=== PATIENT | male | born 1975 | race Caucasian/White ===

== ENCOUNTER → 2022-03-12 15:51 | Outpatient (BNVA) | payer OTHER, SELFPAY | PROVIDERS: PCP Internal Medicine Medical Oncology; Visit Provider Internal Medicine | DX: J45.909 Unspecified asthma, uncomplicated (principal); J44.9 Chronic obstructive pulmonary disease, unspecified; Z72.0 Tobacco use | CPT/HCPCS: 99202 ==

== ENCOUNTER 2022-04-08 14:03 | Outpatient (REF) | payer OTHER, SELFPAY ==
--- NOTE | 2022-04-08 15:00 | PFT_ITS ---
Forced vital capacity is slightly reduced. FEV1 markedly reduced. FEV1/FVC ratio is 51. FEF 25-75 27% and MVV 44%. Post-bronchodilator therapy, there is significant improvement in all parameters resulting in almost complete resolution of the obstructive component. Total lung capacity 101%. Residual volume 151% indicating air trapping. Diffusion capacity 78%. CONCLUSION: Severe obstructive airway disorder. Excellent response to bronchodilator therapy with almost complete resolution. These findings are consistent with bronchial asthma. Clinical correlation recommended. Altaf Flores MD [facility] / [phone]
== END 2022-04-08 14:04 | disposition home or self-care (01) ==
LOC: HO.RESP 14:03
PROVIDERS: PCP Internal Medicine Medical Oncology; Visit Provider Internal Medicine
DX: J44.9 Chronic obstructive pulmonary disease, unspecified (principal); J45.909 Unspecified asthma, uncomplicated; G47.33 Obstructive sleep apnea (adult) (pediatric); Z72.0 Tobacco use; Z79.899 Other long term (current) drug therapy
CPT/HCPCS: 94060; 94727; 94729; 99212

== ENCOUNTER 2023-06-06 18:44 | Emergency (ER) | payer OTHER, SELFPAY ==
--- NOTE | ~2023-06-06 | XR_ITS ---
EXAMINATION: XR SHOULDER, RIGHT CLINICAL INFORMATION: Right shoulder pain COMPARISON: 04/30/2016 TECHNIQUE: AP external rotation, Grashey, scapular Y, and axillary views of the right shoulder. FINDINGS: The acromioclavicular joint appears slightly widened and the distal clavicle is slightly subluxed dorsally although this may be projectional. The coracoclavicular distance does not appear widened. No fracture. The glenohumeral joint is unremarkable. XR/XR shoulder RT min 2V IMPRESSION: Possible mild acromioclavicular separation. Correlate for point tenderness in this location. Otherwise unremarkable.
--- NOTE | ~2023-06-06 | CT_ITS ---
EXAMINATION: CT HEAD WITHOUT CONTRAST CT CERVICAL SPINE WITHOUT CONTRAST CLINICAL INFORMATION: Reason for Exam fall COMPARISON: CT of the head done on 06/29/2011. TECHNIQUE: Imaging was performed from the skull base to vertex without intravenous administration of contrast. In addition, helical noncontrast CT imaging was acquired through the cervical spine and source images were reviewed along with axial reconstructions and sagittal and coronal MPRs. This CT examination was performed using dose optimization techniques as appropriate, variously including the following: *Automated exposure control. *Adjustment of mA and/or kV according to patient size (this includes techniques or standardized protocols for targeted exams where dose is matched to indication/reason for exam; i.e. extremities or head). *Use of iterative reconstruction technique. Total exam dose-length product 1100 mGy-cm FINDINGS: HEAD: No intracranial mass, hemorrhage, or midline shift is visualized. The ventricles and sulci are age-appropriate. No extra-axial collections are identified. The paranasal sinuses and mastoid air cells are well aerated. CERVICAL SPINE: [id number] multilevel degenerative spondylosis. There is no evidence of acute cervical spine fracture. Vertebral bodies remain normal in height, and alignment is anatomic. No prevertebral or paravertebral soft tissue abnormality is identified. Limited assessment of the lung apices is unremarkable. Incidental note is made of subcutaneous soft tissue hypodense circumscribed mass measuring 1.3 cm seen at the level of C2 vertebral body within the left posterolateral part of the soft tissue neck (149:12-see the renner images). CT/CT cervical spine wo IV con IMPRESSION: 1. No acute intracranial pathology. 2. No CT evidence of acute cervical spine fracture or traumatic subluxation. 3. 1.3 cm nonspecific subcutaneous soft tissue circumscribed hypodense mass at the left posterolateral part of the neck at the level of C2 vertebral body, of indeterminate etiology.
[2023-06-06 19:19] VITALS: BP 154/90; PULSE 73; RESP 20; TEMP 36.7; O2SAT 99; BMI 25.1
--- NOTE | 2023-06-06 19:22 | ED.GENADULT ---
HPI - General Adult General Chief complaint: Fall Stated complaint: Fall/Right arm/shoulder injury Time Seen by Provider: 06/06/23 22:14 Source: patient Mode of arrival: ambulatory Limitations: no limitations History of Present Illness HPI narrative: Patient is a 47-year-old male presents emergency department for evaluation after a mechanical fall. He reports 4 days ago he was running quickly down the back stairs of his home outdoors when he missed a step and subsequently fell landing on his right shoulder. He denies any head strike or loss of consciousness. He was having pain to the right shoulder particularly on type radiating into the back most notable with certain movements, and radiates into the lower right lateral neck. Denies any numbness or tingling to the extremity. Denies any prior injury to the shoulder. Denies any neck stiffness, headache, dizziness, vision changes, chest pain, headache. Related Data Home Medications Medication Instructions Recorded Confirmed albuterol sulfate 90 mcg/actuation inhalation 03/12/22 aerosol inhaler (ProAir HFA) fluticasone 250 mcg-salmeterol 50 1 ea inhalation BID 03/12/22 mcg/dose blistr powdr for inhalation (Advair Diskus) methadone 5 mg tablet 5 mg PO Q6H 03/12/22 Previous Rx's Medication Instructions Recorded fluticasone 500 mcg-salmeterol 50 1 inh inhalation BID Severe 04/08/22 mcg/dose blistr powdr for Asthma/Copd 30 days #60 ea inhalation (Advair Diskus) montelukast 10 mg tablet 10 mg PO BEDTIME Asthma 30 days 04/08/22 #30 tabs Allergies Allergy/AdvReac Type Severity Reaction Status Date / Time trazodone [Trazodone] Allergy Unknown PRIAPISM Verified 06/06/23 23:10 Review of Systems Review of Systems: Yes all other systems are reviewed and are negative [facility] Past Medical History Attestation statement: The following information was validated with the patient. Source: old records reviewed Medical History Asthma COPD (chronic obstructive pulmonary disease) Tobacco abuse Social History Social History Patient Tobacco Use Status: Current everyday Tobacco user Cigarette Packs Per Day: 0.5 Cigarettes Per Day: 5 Advance Directives: No Advance Directives Information Provided: No Physical Exam ED Vital Signs: Vital Signs - 24 hr 06/06/23 19:19 06/06/23 22:35 Temperature 98.0 F 97.8 F Pulse Rate 73 55 Respiratory Rate 20 16 Blood Pressure 154/90 H 133/79 Pulse Oximetry 99 98 Oxygen Delivery Method Room Air Room Air BMI result Body Mass Index 25.1 Appearance: Alert.?Oriented to person, place and time. No acute distress.?Normal affect. Eyes: Pupils equal, round and reactive to light.? ENT: Pharynx normal.?? Neck: Normal inspection.? Neck supple.??No midline cervical spine tenderness, step-offs, deformities CVS: Heart sounds normal. Normal heart rate and rhythm.? Pulses normal.?? Respiratory: No respiratory distress.? Lung sounds clear to auscultation bilaterally?? Skin: Skin warm and dry.? Normal skin color.? Extremities: Right shoulder with decreased AROM, able to externally rotate though not fully, increased pain with abduction of the arm to 90 degrees maximum, unable to overhead extend. Tenderness upon palpation of the AC joint. No erythema. No warmth. 2+ radial pulse bilaterally. Neuro: Moves all extremities spontaneously. Sensation intact bilaterally. No focal neuro deficits. Ambulates with normal steady gait. Course Course Course Narrative: RME: 47 yold male presnets to the ED for right shoulder and neck pain after falling unto right shoulder this past wednesday. Xray and head CT scan/cervial c-spine ordered. Medications Administered Discontinued Medications Generic Name Dose Route Start Last Admin Trade Name Freq PRN Reason Stop Dose Admin Ketorolac Tromethamine 30 mg 06/06/23 23:06 06/06/23 23:12 Ketorolac Tromethamine 30 Mg/Ml Vial IM 06/06/23 23:07 30 mg ONCE ONE Administration Medical Decision Making Medical Decision Making MDM Narrative: Patient is a 47-year-old male presents emergency department for evaluation after a mechanical trip and fall with subsequent right shoulder pain as per HPI. At the time my examination he is overall well-appearing. There is no obvious deformity. No erythema or warmth to be consistent with any septic arthritis. The extremity is neurovascularly intact distally. I have reviewed CT imaging obtained from rapid medical examination provider, no intracranial or cervical spine abnormalities. XR imaging revealing possible mild AC separation on the right, which is consistent with point tenderness upon physical examination. He received Toradol in the emergency department with good effect. Discussed plan of care for discharge; rest, ice, acetaminophen/ibuprofen, sling, outpatient follow-up with Orthopedics. Reviewed worrisome signs and symptoms that would warrant re-evaluation in the emergency department. All questions answered. Stable for discharge. Differential Diagnosis Differential Diagnoses: The differential diagnosis associated with the presentation includes (As noted above) Independent Interpretation I performed an independent interpretation of an: Plain X-Ray ( I personally interpreted XR imaging of the right shoulder and agree with radiologist impression, no evidence of acute fracture, point tenderness consistent with mild AC separation) Radiology Impression Discussion of test interpretation with radiology: I have reviewed the radiologist's reading. Radiologist Impression: XR/XR shoulder RT min 2V IMPRESSION: Possible mild acromioclavicular separation. Correlate for point tenderness in this location. Otherwise unremarkable. CT/CT head/brain wo IV con IMPRESSION: 1. No acute intracranial pathology. 2. No CT evidence of acute cervical spine fracture or traumatic subluxation. 3. 1.3 cm nonspecific subcutaneous soft tissue circumscribed hypodense mass at the left posterolateral part of the neck at the level of C2 vertebral body, of indeterminate etiology. External Record Review External record reviewed: Outpatient record Prescription Management I considered prescription management with: Pain Medication Discharge Plan Discharge Clinical Impression: Acromioclavicular joint separation Patient Disposition: Home, Self-Care Instructions: Acromioclavicular Separation (ED) Additional Instructions: You can take ibuprofen 200 mg, 3 tablets (600mg) every 6-8 hours as needed for pain, in addition to Tylenol 500 mg, 2 tablets (1,000mg) every 4-6 hours as needed for pain, but not to exceed 3 doses daily (3,000mg).? Wear the sling, follow-up with orthopedics Prescriptions: No Action montelukast 10 mg tablet 10 mg PO BEDTIME 30 Days Qty: 30 5RF fluticasone propion-salmeterol [Advair Diskus] 500-50 mcg/dose blister with device 1 inh inhalation BID 30 Days Qty: 60 3RF albuterol sulfate [ProAir HFA] 90 mcg/actuation HFA aerosol inhaler inhalation fluticasone propion-salmeterol [Advair Diskus] 250-50 mcg/dose blister with device 1 ea inhalation BID methadone 5 mg tablet 5 mg PO Q6H Rx Instructions: pt is on 26mg daily Referrals: Luke Bright MD [Primary Care Provider] - Jay Berry PA-C [Physician Charter Representative] - Interventions: ED Discharge Assessment Last Done: 06/06/23 23:16 Discharge Date/Time: 06/06/23 23:17
[2023-06-06 22:35] VITALS: BP 133/79; PULSE 55; RESP 16; TEMP 36.6; O2SAT 98
[2023-06-06] MEDS: Ketorolac Tromethamine 30 MG/ML VIAL IM (23:12)
== END 2023-06-06 23:17 | disposition home or self-care (01) ==
PROVIDERS: Emergency Provider Internal Medicine; PCP Internal Medicine Medical Oncology
DX: S43.101A Unspecified dislocation of right acromioclavicular joint, initial encounter (principal); R51.9 Headache, unspecified; M54.2 Cervicalgia; M25.511 Pain in right shoulder; F17.210 Nicotine dependence, cigarettes, uncomplicated; W01.0XXA Fall on same level from slipping, tripping and stumbling without subsequent striking against object, initial encounter; Y93.9 Activity, unspecified; Y92.9 Unspecified place or not applicable; Y99.9 Unspecified external cause status; Z71.6 Tobacco abuse counseling; Z79.899 Other long term (current) drug therapy
CPT/HCPCS: 70450; 72125; 73030; 96372; 99284; J1885

== ENCOUNTER 2023-07-12 11:35 | Outpatient (REF) | payer OTHER, SELFPAY ==
[2023-07-12 13:19] LABS: Hematocrit 45.6 % (42.0-52.0); Hemoglobin 16.1 g/dl (14.0-18.0); Mean Corpuscular HGB Conc 35.3 g/dl (31.0-36.0); Mean Corpuscular Hemoglobin 33.3 pg (27.0-33.0); Mean Corpuscular Volume 94.4 fL (80.0-98.0); Mean Platelet Volume 11.2 fL (9.4-12.4); Platelet Count 167 X10*3/uL (160-400); Red Blood Count 4.83 X10*6/uL (4.60-5.80); Red Cell Distribution Width 14.8 % (11.0-16.0); White Blood Count 6.6 X10*3/uL (4.8-10.8)
[2023-07-12 14:06] LABS: Alanine Aminotransferase 24 U/L (0-40); Albumin Level 4.5 g/dL (3.5-5.0); Alkaline Phosphatase 132 U/L (39-117); Anion Gap 18 (12-20); Aspartate Amino Transferase 35 U/L (5-37); Bilirubin Total 0.7 mg/dL (0.0-1.0); Blood Urea Nitrogen 9 mg/dL (9-16); Calcium 9.7 mg/dL (8.4-10.2); Carbon Dioxide 26 mmol/L (22-29); Chloride 100 mmol/L (96-108); Estimated Glomerular Filt Rate > 60; Glucose Random 68 mg/dL (60-115); Potassium 4.6 mmol/L (3.3-5.1); Sodium 139 mmol/L (135-145); Total Protein 7.6 g/dL (6.5-8.0)
== END 2023-07-12 11:36 | disposition home or self-care (01) ==
LOC: HO.LAB 11:35
PROVIDERS: PCP Internal Medicine Medical Oncology; Visit Provider Nurse Practitioner Family
DX: K21.9 Gastro-esophageal reflux disease without esophagitis (principal); F10.20 Alcohol dependence, uncomplicated
CPT/HCPCS: 36415; 80053; 85027

== ENCOUNTER 2023-07-12 11:35 | Outpatient (AMB) | payer OTHER, SELFPAY ==
[2023-07-12 11:48] VITALS: BP 142/86; PULSE 60; BMI 24.5
--- NOTE | 2023-07-12 11:48 | A.OFFVIS_ITS ---
Intake Vital Signs 07/12/23 11:48 Height 5 ft 11 in Weight 175 lb 14.862 oz BMI 24.5 BP 142/86 H Blood Pressure Location Lt brachial Position Sitting Pulse 60 Intake Visit Reasons: Colonoscopy Screening Intake Note: Patient presents to in office visit today as a new patient for colonoscopy screening. CC: Patient reports previous colonoscopy when he was in his 30's at [facility] [place] due to some intestinal issues . Patient states I do have a heartburn a lot but I think that is due to drinking . Patient reports drinking hard liquor every day for the last 2 years and a half after his fiancee past away. Allergies trazodone [Trazodone] Allergy (Unknown, Verified 07/12/23 11:51) PRIAPISM HPI Colonoscopy Screening HPI Details 47 years old male with past medical hist ory of tobacco abuse, COPD, asthma, ETOH use is here today for initial consultation. Patient was sent by his PCP for colonoscopy screening. Patient states that he had colonoscopy for the 1st time when he was in his 30s for intestinal issues. Patient had diarrhea. Negative colonoscopy then. Patient's mom was diagnosed with colorectal cancer just recently about year and half ago go or so when she was 74 years old. Patient denies melena, hematochezia, unintentional weight loss or ribbon like stools. Patient reports drinking alcohol oral every single day for the last 2 years. Patient drinks heavy liquor. Patient also admits to using cocaine. Patient denies any cardiac or respiratory symptoms. Uses Advair for asthma. Denies any chest pain with or without exertion, presyncope or syncope. Long discussion with patient about drinking and doing drugs and not being able to go for colonoscopy. Patient will try to see if he can stop so he can go had and have the procedure done. Discussed with him the importance of getting it done due to his family history. Currently patient has no abdominal pain or discomfort. Denies any history of sleep apnea. Not on any anticoagulation medication. [facility] Medical History (Updated 06/07/23 @ 00:01 by Duran Rodriguez) Tobacco abuse COPD (chronic obstructive pulmonary disease) Asthma Surgical History (Updated 07/12/23 @ 11:53 by MALLORIE Day) H/O hemorrhoidectomy H/O colonoscopy Family History (Updated 07/12/23 @ 11:55 by Vilmarys Buck Doan, CCMA) Mother Colon cancer Uterus cancer Breast cancer Paternal Grandmother Cancer Paternal Aunt Cancer Social History (Updated 07/12/23 @ 11:57 by Olayinka Doan [facility]) Alcohol intake: current Alcohol intake frequency: 3 or more drinks per day Alcohol type: hard liquor Patient Tobacco Use Status: Current everyday Tobacco user Cigarette Packs Per Day: 0.5 Cigarettes Per Day: 5 Years Smoked: 15-20 years Review of Systems Const Denies weight gain and Denies weight loss ENT Reports no additional complaints, Denies dysphagia and Denies odynophagia Card Reports no additional complaints Resp Reports no additional complaints GI Denies abdominal pain, Denies belching, Denies melena, Denies bloating, Denies change in bowel habits, Denies dysphagia, Denies excessive flatus, Denies dyspepsia, Reports heartburn, Denies diarrhea, Denies loose stools, Denies nausea, Denies odynophagia and Denies vomiting Reports no additional complaints Musc Reports no additional complaints Neuro Reports no additional complaints Psych Reports no additional complaints Endo Reports no additional complaints Physical Exam Vital Signs: Last Vital Signs Pulse 60 07/12/23 11:48 BP 142/86 H 07/12/23 11:48 BMI result Body Mass Index 24.5 Const General: healthy appearing, no acute distress and well developed Nutritional Appearance: well nourished Orientation/consciousness: patient oriented x3 HEENT Head: Yes normal to inspection, Yes normocephalic and Yes atraumatic Face and sinus: Yes normal facial exam Mouth: Normal oral and palatal mucosa present Throat: Yes posterior oropharynx normal, Yes tonsils normal and Yes uvula midline Eyes General: appearance normal, both eyes and all related structures Neck Neck: Yes normal visual inspection, Yes full ROM and Yes trachea midline Thyroid: Thyroid normal Resp Effort & Inspection: normal respiratory effort, able to speak in complete sentences, no tracheal deviation and symmetric chest movement Auscultation: clear to auscultation bilaterally Cardio Rate: regular rate Heart sounds: S1 normal heart sound present and S2 normal heart sound present GI Inspection: Yes normal to inspection and No distended Palpation (GI): Soft to palpation, not firm, nontender and No hepatosplenomegaly present Auscultation: normal bowel sounds General: Yes no CVA tenderness Back/Spine/Pelvis Back: no CVA tenderness Skin General skin exam: elasticity normal, turgor normal and dry skin Neuro General: patient oriented x3 Psych Appearance: grossly normal Mental Status: mental status grossly normal Speech and movement: Normal speech and movement present Assessment & Plan Assessment & Plan (1) Screen for colon cancer: Code(s): Z12.11 - Encounter for screening for malignant neoplasm of colon (2) GERD (gastroesophageal reflux disease): Code(s): K21.9 - Gastro-esophageal reflux disease without esophagitis Qualifiers: Esophagitis presence: esophagitis presence not specified Qualified Code(s): K21.9 - Gastro-esophageal reflux disease without esophagitis (3) EtOH dependence: Code(s): F10.20 - Alcohol dependence, uncomplicated Qualifiers: Complication of substance-induced condition: uncomplicated Plan Long discussion with patient about abstinence from alcohol and specially doing cocaine. Patient will not be able to go under anesthesia due to going to possible withdrawal or cardiac issues from cocaine. Patient will be back in 3 months. He was strongly encouraged to try to stop drinking maybe go to detox. Definitely avoiding cocaine. Patient will return and we will discuss going for colonoscopy screening. Patient is agreeable to this plan and verbalizes understanding of instructions. He was given the opportunity to ask questions and all questions answered. Thank you for allowing me to participate in his care Orders: Orders Complete Blood Count no Diff 07/12/23 K21.9 - Gastro-esophageal reflux disease without esophagitis Comprehensive Met. Panel 07/12/23 K21.9 - Gastro-esophageal reflux disease without esophagitis Medications: New famotidine (Pepcid) 20 mg PO BEDTIME 30 tabs 3RF K21.9 - Gastro-esophageal reflux disease without esophagitis Coding Level of Care Code New Pt Level 4 (57452) Diagnoses Screen for colon cancer Z12.11 Gastroesophageal reflux disease, unspecified whether esophagitis present K21.9 Esophagitis presence: esophagitis presence not specified EtOH dependence F10.20 Complication of substance-induced condition: uncomplicated Time Spent (min) 45 Comment 30 minutes spent with patient and additional 15 minutes spent reviewing his records.
== END 2023-07-12 12:20 | disposition home or self-care (01) ==
PROVIDERS: PCP Internal Medicine Medical Oncology; Visit Provider Nurse Practitioner Family
DX: Z12.11 Encounter for screening for malignant neoplasm of colon (principal); K21.9 Gastro-esophageal reflux disease without esophagitis; F10.20 Alcohol dependence, uncomplicated; Z01.818 Encounter for other preprocedural examination
CPT/HCPCS: 99204

== ENCOUNTER 2024-01-16 18:49 | Emergency (ER) | payer OTHER, SELFPAY ==
[2024-01-16 18:56] VITALS: BP 142/101; PULSE 88; RESP 18; TEMP 36.5; O2SAT 97
[2024-01-16 19:01] VITALS: BP 146/91; PULSE 101; O2SAT 98; BMI 27.4
--- NOTE | 2024-01-16 19:05 | PC.NURSE ---
Pt aox4 resting at the bedside. Presented after OD on 4 bags of IV heroin and family at home administered Narcan 16mg. No apparent distress noted. Pt expresses the desire to go home as this was an accident and has no further complaints to report. Denies SI/HI. Pending physician eval.
--- NOTE | 2024-01-16 19:23 | ED_ITS ---
HPI - Overdose General Chief Complaint: Overdose Stated Complaint: OD,16MG NARCAN GIVEN. PT NOW AWAKE Time Seen by Provider: 01/16/24 19:07 Source: patient and EMS Mode of arrival: EMS Limitations: no limitations History of Present Illness HPI Narrative: 48-year-old male history of asthma, COPD, tobacco abuse, opiate use disorder presenting status post overdose, patient reports today he used 4 bags of IV heroin, resulting in an overdose. He reports he is never overdosed before. According to EMS he got 16 mg of intranasal Narcan. Patient reports this is accidental this is not an intentional overdose. Not SI or HI. No complaints at this time there is no fall associated with overdose or trauma. Patient states he feels well and he would like to leave. Denies chest pain, shortness of breath, nausea, vomiting, abdominal pain, headache, vision changes, dizziness and weakness. Not interested in detox reports he just got out GCS 15 NIH stroke scale 0. Alert and oriented x4 at time of initial assessment Related Data Home Medications Medication Instructions Recorded Confirmed albuterol sulfate 90 mcg/actuation 2 inh inhalation Q6H PRN 07/12/23 aerosol inhaler (ProAir HFA) Previous Rx's Medication Instructions Recorded fluticasone 500 mcg-salmeterol 50 1 inh inhalation BID Severe 04/08/22 mcg/dose blistr powdr for Asthma/Copd 30 days #60 ea inhalation (Advair Diskus) famotidine 20 mg tablet (Pepcid) 20 mg PO BEDTIME #30 tabs 07/12/23 Allergies Allergy/AdvReac Type Severity Reaction Status Date / Time trazodone [Trazodone] Allergy Unknown PRIAPISM Verified 07/12/23 11:51 Review of Systems 2 Review of Systems: Yes all other systems are reviewed and are negative [facility] Past Medical History Attestation statement: The following information was validated with the patient. Source: old records reviewed and nursing notes reviewed Medical History Tobacco abuse COPD (chronic obstructive pulmonary disease) Asthma Surgical History H/O hemorrhoidectomy H/O colonoscopy Family History Family History Mother Colon cancer Uterus cancer Breast cancer Paternal Grandmother Cancer Paternal Aunt Cancer Social History Social History Alcohol intake: current Alcohol intake frequency: 3 or more drinks per day Alcohol type: hard liquor Patient Tobacco Use Status: Current everyday Tobacco user Cigarette Packs Per Day: 0.5 Cigarettes Per Day: 5 Years Smoked: 15-20 years Advance Directives: No Advance Directives Information Provided: No Physical Exam 2 Vital Signs: Vital Signs: Last Vital Signs Temp 97.7 F 01/16/24 18:56 Pulse 88 01/16/24 18:56 Resp 18 01/16/24 18:56 BP 142/101 H 01/16/24 18:56 Pulse Ox 97 01/16/24 18:56 O2 Del Method Room Air 01/16/24 18:56 BMI result Body Mass Index 27.4 Hypertensive likely secondary to overdose and Narcan. Appearance: Alert.? Oriented X3.? No acute distress.? Head: Normocephalic, atraumatic, no step-offs or deformities Eyes: Pupils equal, round and reactive to light.? ENT: Pharynx normal.? Neck: Normal inspection.? Neck supple.? CVS: Normal heart rate and rhythm.? Pulses normal.? Respiratory: No respiratory distress.? Breath sounds mild bilateral wheezing..? Abdomen: Soft and nontender.? Skin: Skin warm and dry.? Normal skin color.? Normal skin turgor.? Extremities: No lower extremity edema.? No calf ttp. 5/5 strength to bilateral upper and lower extremities Neuro: Oriented X 3.? No motor deficit.? No sensory deficit. CN 2-12 intact . Ambulating with steady gait normal coordination. Normal [id number]. Course Reevaluation(s) Reevaluation #1: Patient observed for an hour. Steady vitals. Neurological assessment nonfocal. Patient feeling well. Does not want to stay for additional observation. Patient to be discharged home with Narcan. Was seen by the care team refused an assessment however was provided with outpatient resources Educated patient on diagnosis and treatment plan, answered all question, patient verbalizes understanding. At this time patient will be discharged home, advised to return with new or worsening symptoms. Educated on worrisome signs and symptoms and when to return. At this time I feel comfortable discharge home. Time: 20:32 Medical Decision Making Medical Decision Making MDM Narrative: 48-year-old male presents status post accidental opiate overdose. Physical exam neurological assessment nonfocal. Mild bilateral wheezing Wheezing likely secondary to chronic lung disease. I do not suspect flash pulmonary edema. Overdose likely accidental. Unlikely suicidal or homicidal. No signs of acute psychosis or respiratory distress at this time. No signs of traumatic injury to head neck, chest, abdomen and pelvis I did offer information for detox patient states he is okay. And he is not interested at this time. Plan at this time labs, urine, substance use disorder evaluation however patient refusing. Patient wants to leave right away he is alert and oriented x4, I convinced him to stay for observation for an hour he is agreeable to this. Differential Diagnosis Differential Diagnoses: The differential diagnosis associated with the presentation includes Wheezing likely secondary to chronic lung disease. I do not suspect flash pulmonary edema. Overdose likely accidental. Unlikely suicidal or homicidal. No signs of acute psychosis or respiratory distress at this time. No signs of traumatic injury to head neck, chest, abdomen and pelvis Admission/Observation Consideration of admission/observation: Escalation of care including admission/observation considered Headers no indication Consult Healthcare Provider Management of the patient was discussed with: [employer] (Care team) Lab Data 01/16/24 19:29 01/16/24 19:29 Labs: Lab Results 01/16/24 Range/Units 19:29 WBC 8.0 (4.8-10.8) X10*3/uL RBC 4.65 (4.60-5.80) X10*6/uL Hgb 14.6 (14.0-18.0) g/dl Hct 39.8 L (42.0-52.0) % MCV 85.6 (80.0-98.0) fL MCH 31.4 (27.0-33.0) pg MCHC 36.7 H (31.0-36.0) g/dl RDW 12.3 (11.0-16.0) % Plt Count 186 (160-400) X10*3/uL MPV 10.6 (9.4-12.4) fL Immature Gran % (Auto) 0.1 (0.0-0.4) % Neut % (Auto) 76.3 H (45-73) % Lymph % (Auto) 14.9 L (20-40) % [place] % (Auto) 7.8 (2-11) % Eos % (Auto) 0.5 (0-4) % Baso % (Auto) 0.4 (0-2) % Lymph # (Auto) 1.2 (1.2-4.9) X10*3/uL [place] # (Auto) 0.6 (0.1-1.2) X10*3/uL Eos # (Auto) 0.0 (0.0-0.4) X10*3/uL Baso # (Auto) 0.0 (0.0-0.2) X10*3/uL Abs Immat Gran (auto) 0.01 (0.00-0.03) X10*3/uL Absolute Neuts (auto) 6.1 (2.0-8.3) x10*3/uL Absolute Nucleated RBC 0.000 (0.0-0.012) X10*3/uL Nucleated RBC % (auto) 0.0 (0.0-0.2) /100WBC Sodium 138 (135-145) mmol/L Potassium 3.2 L (3.3-5.1) mmol/L Chloride 104 (96-108) mmol/L Carbon Dioxide 25 (22-29) mmol/L Anion Gap 12 (12-20) BUN 12 (9-16) mg/dL Creatinine 0.74 (0.5-1.4) mg/dL Estim Creat Clear Calc 119.3 Estimated GFR > 60 Random Glucose 137 H (60-115) mg/dL Calcium 8.7 D (8.4-10.2) mg/dL Magnesium 2.0 (1.6-2.6) mg/dL Total Bilirubin 0.5 (0.0-1.0) mg/dL AST 374 H (5-37) U/L ALT 619 H (0-40) U/L Alkaline Phosphatase 107 (39-117) U/L Total Protein 7.4 (6.5-8.0) g/dL Albumin 4.0 (3.5-5.0) g/dL Salicylates < 5.0 L (15-30) mg/dL Acetaminophen < 3 (<30) mcg/mL Ethyl Alcohol < 10 mg/dL Prescription Management I considered prescription management with: Other (Narcan) Chronic Conditions Patient?s care impacted by: Other (Opiate use disorder, COPD, asthma) Social Determinants Patient?s care significantly limited by Social Determinants of Health including: Other Social Determinant of Health Critical Care Time Critical Care Time Critical Care Time: No Discharge Plan Discharge Clinical Impression: Drug overdose Patient Disposition: Home, Self-Care Instructions: Adult Overdose (ED) Additional Instructions: Take your medications as prescribed. If you were prescribed antibiotics today, it is important that you take your medication to their entirety, do not skip any doses, do not finish them early. Follow-up with your primary care provider this week. Return to the emergency department with new or worsening symptoms. Such as fevers, chills, chest pain, shortness of breath, nausea, vomiting, dizziness, headache, vision changes, lethargy In case of emergency call 911 Please carry [place] on you at all times. This can save her life. Prescriptions: No Action fluticasone propion-salmeterol [Advair Diskus] 500-50 mcg/dose blister with device 1 inh inhalation BID 30 Days Qty: 60 3RF albuterol sulfate [ProAir HFA] 90 mcg/actuation HFA aerosol inhaler 2 inh inhalation Q6H PRN famotidine [Pepcid] 20 mg tablet 20 mg PO BEDTIME Qty: 30 3RF Stand Alone Forms: Work/School Release
[2024-01-16 19:32] LABS: MANUAL DIFF FLAG NO
[2024-01-16 19:34] LABS: Basophils Percent Auto 0.4 % (0-2); Eosinophils Percent Auto 0.5 % (0-4); Hematocrit 39.8 % (42.0-52.0); Hemoglobin 14.6 g/dl (14.0-18.0); Imm Gran Abs Auto 0.01 X10*3/uL (0.00-0.03); Imm Gran Pct Auto 0.1 % (0.0-0.4); Lymphocytes Absolute Auto 1.2 X10*3/uL (1.2-4.9); Lymphocytes Percent Auto 14.9 % (20-40); Mean Corpuscular HGB Conc 36.7 g/dl (31.0-36.0); Mean Corpuscular Hemoglobin 31.4 pg (27.0-33.0); Mean Corpuscular Volume 85.6 fL (80.0-98.0); Mean Platelet Volume 10.6 fL (9.4-12.4); Monocytes Absolute Auto 0.6 X10*3/uL (0.1-1.2); Monocytes Percent Auto 7.8 % (2-11); Neutrophils Absolute Auto 6.1 x10*3/uL (2.0-8.3); Neutrophils Percent Auto 76.3 % (45-73); Platelet Count 186 X10*3/uL (160-400); Red Blood Count 4.65 X10*6/uL (4.60-5.80); Red Cell Distribution Width 12.3 % (11.0-16.0)
--- NOTE | 2024-01-16 19:40 | HO.SUDE ---
[place] [facility] [place] [facility] [place] after he overdosed on 4 bags of heroin, accidentally. Pt was given 16mg of Narcan by his family members who were home at the time. CARE Team offered to complete a SUDE with the pt but he declined to do it. CARE Team gave the pt an information booklet with multiple numbers and agencies in it that the pt can use for detox and/or mental health.
--- NOTE | 2024-01-16 19:44 | PC.NURSE ---
Security at bedside. 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
[2024-01-16 19:52] LABS: Acetaminophen LAB < 3 mcg/mL (<30); Alanine Aminotransferase 619 U/L (0-40); Alkaline Phosphatase 107 U/L (39-117); Anion Gap 12 (12-20); Aspartate Amino Transferase 374 U/L (5-37); Bilirubin Total 0.5 mg/dL (0.0-1.0); Blood Urea Nitrogen 12 mg/dL (9-16); Calcium 8.7 mg/dL (8.4-10.2); Carbon Dioxide 25 mmol/L (22-29); Chloride 104 mmol/L (96-108); Creatinine Clr Calc Pharmacy 119.3; Estimated Glomerular Filt Rate > 60; Ethanol < 10 mg/dL; Glucose Random 137 mg/dL (60-115); Potassium 3.2 mmol/L (3.3-5.1); Salicylate < 5.0 mg/dL (15-30); Sodium 138 mmol/L (135-145); Total Protein 7.4 g/dL (6.5-8.0)
[2024-01-16] MEDS: Naloxone HCl Nasal TAKE HOME 4 MG SPRAY 8 MG NOSTRILALT (20:40)
[2024-01-16 20:41] VITALS: BP 118/77; PULSE 73; RESP 16; TEMP 37; O2SAT 96
== END 2024-01-16 20:42 | disposition home or self-care (01) ==
PROVIDERS: Physician Assistant; Emergency Provider Emergency Medicine Emergency Medical Services; PCP Internal Medicine Medical Oncology
DX: T40.1X1A Poisoning by heroin, accidental (unintentional), initial encounter (principal); F11.90 Opioid use, unspecified, uncomplicated; J44.9 Chronic obstructive pulmonary disease, unspecified; Y92.9 Unspecified place or not applicable
CPT/HCPCS: 36415; 80053; 80143; 80179; 80307; 83735; 85025; 99283

== ENCOUNTER 2024-01-28 01:19 | Emergency (ER) | payer OTHER, SELFPAY ==
[2024-01-28 01:24] VITALS: BP 163/83; PULSE 77; RESP 16; TEMP 36.7; O2SAT 96
[2024-01-28 01:26] VITALS: BP 159/71; BP 163/83; PULSE 80; PULSE 81; RESP 16; TEMP 37.1; O2SAT 95; O2SAT 98; BMI 23.3
--- NOTE | 2024-01-28 01:27 | ED_ITS ---
HPI - General Adult General Stated complaint: OD Time Seen by Provider: 01/28/24 01:23 Source: patient, RN notes reviewed and old records reviewed Mode of arrival: ambulatory Limitations: no limitations History of Present Illness HPI narrative: 48-year-old male presents for evaluation of an opiate overdose Patient admits to intentionally ingesting opiates to get high. He was not attempting to harm himself in any way Apparently he was given Narcan by [place] [employer] The patient reports that he feels somewhat lightheaded He has no other complaints or concerns at this time Related Data Home Medications ?Medication ?Instructions ?Recorded ?Confirmed albuterol sulfate 90 mcg/actuation 2 inh inhalation Q6H PRN 07/12/23 aerosol inhaler (ProAir HFA) Previous Rx's ?Medication ?Instructions ?Recorded fluticasone 500 mcg-salmeterol 50 1 inh inhalation BID Severe 04/08/22 mcg/dose blistr powdr for Asthma/Copd 30 days #60 ea inhalation (Advair Diskus) famotidine 20 mg tablet (Pepcid) 20 mg PO BEDTIME #30 tabs 07/12/23 Allergies Allergy/AdvReac Type Severity Reaction Status Date / Time trazodone [Trazodone] Allergy Unknown PRIAPISM Verified 01/28/24 01:28 Review of Systems Constitutional: Constitutional: Denies chills and Denies fever(s) Eyes: Eyes: Denies blurry vision ENT: Denies sore throat Cardiovascular: Cardiovascular: Denies chest pain and Denies dyspnea Respiratory: Respiratory: Denies cough and Denies dyspnea Gastrointestinal: Gastrointestinal: Denies abdominal pain, Denies nausea and Denies vomiting Musculoskeletal: Musculoskeletal: Denies back pain Integumentary/Breasts: Skin/Breast: Denies rash [facility] Past Medical History Medical History Tobacco abuse COPD (chronic obstructive pulmonary disease) Asthma Surgical History H/O hemorrhoidectomy H/O colonoscopy Family History Family History Mother Colon cancer Uterus cancer Breast cancer Paternal Grandmother Cancer Paternal Aunt Cancer Social History Social History Alcohol intake: current Alcohol intake frequency: 3 or more drinks per day Alcohol type: hard liquor Patient Tobacco Use Status: Current everyday Tobacco user Cigarette Packs Per Day: 0.5 Cigarettes Per Day: 5 Years Smoked: 15-20 years Physical Exam ED Vital Signs: Vital Signs - 24 hr 01/28/24 01:24 Temperature 98.0 F Pulse Rate 77 Respiratory Rate 16 Blood Pressure 163/83 H Pulse Oximetry 96 Oxygen Delivery Method Room Air Const Other: Patient is somewhat sleepy but is able to stay awake to answer all questions of history and exam. General: healthy appearing, comfortable, no acute distress, alert and awake Nutritional Appearance: well nourished Orientation/consciousness: patient oriented x3 HENMT Head: Yes normocephalic and Yes atraumatic Eyes Eyelids: Yes eyelids normal Conjunctivae: conjunctivae normal Sclerae: sclerae normal Corneas: corneas normal Pupils: Equal, round and reactive pupils present EOM: EOMs intact bilaterally Neck Neck: Yes full ROM Resp Effort & Inspection: normal respiratory effort, able to speak in complete sentences and not labored GI Inspection: No distended Palpation (GI): Soft to palpation, not firm, nontender, no guarding and not rigid Skin General skin exam: elasticity normal Neuro General: patient oriented x3 Cranial nerves: Yes Equal, round and reactive pupils present and Yes Bilaterally intact EOM present Cognition (Neuro): normal cognition Extrem Other: Moving all extremities well without any obvious deformities Medical Decision Making Medical Decision Making MDM Narrative: Patient expresses interest in leaving against medical advice immediately after being triaged. The patient is able to prove that he is awake, alert and oriented. He is willing to accept take home Narcan. He declines to speak to the care team or addiction medicine. Given the patient denies any depression or suicidal thoughts, I do not see any reason to keep him against medical advice. His vital signs are stable, he is alert and oriented. Patient was educated on risks of leaving and is able to verbalize understanding he will leave against medical advice Differential Diagnosis Differential Diagnoses: The differential diagnosis associated with the presentation includes Opiate overdose Opiate abuse Substance abuse Opiate withdrawal Discharge Plan Discharge Clinical Impression: Opiate overdose Patient Disposition: Left Against Medical Advice Instructions: Opioid Use Disorder (ED) Additional Instructions: You are choosing to leave against medical advice You were given a Narcan for take home If you change your mind and are interested in detox, you may return to the ER Follow-up with your primary doctor Prescriptions: No Action fluticasone propion-salmeterol [Advair Diskus] 500-50 mcg/dose blister with device 1 inh inhalation BID 30 Days Qty: 60 3RF albuterol sulfate [ProAir HFA] 90 mcg/actuation HFA aerosol inhaler 2 inh inhalation Q6H PRN famotidine [Pepcid] 20 mg tablet 20 mg PO BEDTIME Qty: 30 3RF Stand Alone Forms: Against Medical Advice Print Language: Amharic
--- NOTE | 2024-01-28 01:29 | PC.NURSE ---
Pt presents for overdose of one bag of heroin. Pt was given an unknown amount of narcan by [employer]. Pt apparently ran from scene but came back and accepted transport. Pt is A&Ox4, GCS 15, cool, dry skin. Pt has been yawning a low. ISABEL Felix at the bedside, pt stated he does not want to stay and wishes to leave AMA. PA explained the risks and that narcan could be short acting. Pt verbalized understanding.
[2024-01-28] MEDS: Naloxone HCl Nasal TAKE HOME 4 MG SPRAY 8 MG NOSTRILALT (01:39)
[2024-01-28 02:06] VITALS: BP 163/83; PULSE 81; RESP 16; TEMP 37.1; O2SAT 98
== END 2024-01-28 02:07 | disposition left against medical advice (07) ==
PROVIDERS: Emergency Provider Internal Medicine
DX: T40.2X1A Poisoning by other opioids, accidental (unintentional), initial encounter (principal); Y92.9 Unspecified place or not applicable; J44.9 Chronic obstructive pulmonary disease, unspecified
CPT/HCPCS: 99283

== ENCOUNTER 2024-08-13 14:42 | Inpatient (IN) | payer OTHER, SELFPAY ==
[2024-08-13] VITALS (9 sets, daily range): BP systolic 99–158; BP diastolic 47–91; PULSE 61–89; RESP 13–28; TEMP 36.1–36.4; O2SAT 60–100; BMI 23.5
--- NOTE | ~2024-08-13 | XR_ITS ---
EXAMINATION: XR CHEST CLINICAL INFORMATION: Shortness of breath COMPARISON: None available. TECHNIQUE: Frontal view of the chest was obtained. FINDINGS: Right basilar radiopacity may reflect atelectasis versus infectious/inflammatory etiology. No pneumothorax. Trachea is midline. Cardiac mediastinal silhouette is not enlarged. Osseous structures are intact. Soft tissues are unremarkable. XR/XR chest 1V IMPRESSION: Right basilar radiopacity may reflect atelectasis versus infectious/inflammatory etiology. Electronically signed by: Marcelino Lynn MD 08/13/2024 04:19 PM EDT RP
--- NOTE | 2024-08-13 14:49 | ECG_ITS ---
Test Reason : SOB Blood Pressure : / mmHG Vent. Rate : 060 BPM Atrial Rate : 060 BPM P-R Int : 150 ms QRS Dur : 108 ms QT Int : 454 ms P-R-T Axes : 074 067 060 degrees QTc Int : 454 ms Normal sinus rhythm Normal ECG When compared with ECG of 06-DEC-2015 13:27, No significant change was found Referred By: Horace Kearns Electronically Signed By:AWILDA SHAH
--- NOTE | 2024-08-13 14:51 | ED_ITS ---
HPI - SOB/Dyspnea General Chief Complaint: Dyspnea Stated Complaint: SOB Time Seen by Provider: 08/13/24 14:43 Source: EMS Mode of arrival: EMS History of Present Illness HPI Narrative: This is a 48 years old male with history of asthma and prior intubation active smoker presented to emergency department in respiratory distress, he receive pre-hospital IV steroid IV magnesium duo nebs IM epinephrine. The arrived on the BiPAP. MD elicited complaint: shortness of breath Pertinent past history: asthma Onset (ago): day(s) (1) Context: recent illness Timing: constant Severity: severe Exacerbating factors: nothing Relieving factors: nothing Known history of: asthma Associated symptoms: denies other symptoms Treatment prior to arrival: none Related Data Home Medications ?Medication ?Instructions ?Recorded ?Confirmed albuterol sulfate 90 mcg/actuation 2 inh inhalation Q6H PRN 07/12/23 aerosol inhaler (ProAir HFA) Previous Rx's ?Medication ?Instructions ?Recorded fluticasone 500 mcg-salmeterol 50 1 inh inhalation BID Severe 04/08/22 mcg/dose blistr powdr for Asthma/Copd 30 days #60 ea inhalation (Advair Diskus) famotidine 20 mg tablet (Pepcid) 20 mg PO BEDTIME #30 tabs 07/12/23 Allergies Allergy/AdvReac Type Severity Reaction Status Date / Time trazodone [Trazodone] Allergy Unknown PRIAPISM Verified 08/13/24 14:50 Review of Systems 2 ENT: Reports system reviewed and no additional complaints, except as documented Cardiovascular: Cardiovascular: Reports no additional cardiovascular complaints and Reports dyspnea Respiratory: Respiratory: Reports dyspnea and Reports wheezing Allergic/Immunologic: Allergic/Immunologic: Reports wheezing PMFSH Past Medical History Medical History Tobacco abuse COPD (chronic obstructive pulmonary disease) Asthma Surgical History H/O hemorrhoidectomy H/O colonoscopy Family History Family History Mother Colon cancer Uterus cancer Breast cancer Paternal Grandmother Cancer Paternal Aunt Cancer Social History Social History Alcohol intake: current Alcohol intake frequency: holidays/special occasions only Alcohol type: hard liquor Patient Tobacco Use Status: Current everyday Tobacco user Cigarette Packs Per Day: 0.5 Cigarettes Per Day: 5 Years Smoked: 15-20 years Smoked in Last 30 Days: Yes Use of substances other than those prescribed or required for medical reasons: Yes Substance Use Type: Crack/Cocaine, Heroin and Marijuana Advance Directives: No Advance Directives Information Provided: No Do you have a plan to hurt others: No Plan Physical Exam 2 Vital Signs: Vital Signs: Last Vital Signs Temp 97.0 F 08/13/24 16:00 Pulse 75 08/13/24 16:00 Resp 16 08/13/24 16:00 BP 117/47 L 08/13/24 16:00 Pulse Ox 94 08/13/24 16:00 O2 Del Method Oxymask 08/13/24 16:00 O2 Flow Rate 5 08/13/24 16:00 BMI result Body Mass Index 23.5 Const: General: alert Nutritional Appearance: average body habitus O rientation/consciousness: patient oriented x3 Limitations: no limitations HEENT: Head: Yes normal to inspection Ears: hearing grossly normal bilaterally General nose exam: Normal external nose present Face and sinus: Yes normal facial exam Mouth: Normal oral and palatal mucosa present Throat: Yes posterior oropharynx normal Neck: Neck: Yes normal visual inspection Chest: Chest palpation & inspection: normal inspection of the chest Resp: Effort & Inspection: audible wheezes and Actively coughing A uscultation: rhonchi and wheezes Cardio: Jugular venous distension: no JVD Rate: regular rate Rhythm: r egular rhythm GI: Inspection: Yes normal to inspection Palpation (GI): Soft to palpation, not firm, nontender and no guarding Skin: General skin exam: no rashes or lesions noted, elasticity normal and turgor normal Lesions: no lesions Rashes: no rashes Trauma: no lacerations or abrasions Neuro: General: patient oriented x3 Cranial nerves: Yes CN's II-XII intact bilaterally Course Reevaluation(s) Reevaluation #1: doing much better talking full sentences Time: 16:00 Medications Administered Discontinued Medications Generic Name Dose Route Start Last Admin Trade Name Freq PRN Reason Stop Dose Admin Albuterol Sulfate 5 mg/ 0 mg 08/13/24 14:54 08/13/24 14:57 Albuterol/Ipratropium 3 ml INHALE 08/13/24 14:55 10 each ONCE ONE Administration Sodium Chloride 1,000 mls @ 999 mls/hr 08/13/24 15:00 08/13/24 16:02 Ns IVCONT 08/13/24 16:00 Infused .Q1H1M DEBORAH Infusion Medical Decision Making Medical Decision Making [facility] Narrative: Patient presented in respiratory distress asthma exacerbation we will continue albuterol we will continue BiPAP Differential Diagnosis Differential Diagnoses: The differential diagnosis associated with the presentation includes Asthma exacerbation/pneumonia/pneumothorax Admission/Observation Consideration of admission/observation: Escalation of care including admission/observation considered Lab Data [facility] Lab Attestation statement: I reviewed the patient's lab results. 08/13/24 14:54 08/13/24 15:18 Labs: Lab Results 08/13/24 08/13/24 08/13/24 Range/Units 14:54 15:01 15:18 WBC 8.0 (4.8-10.8) X10*3/uL RBC 4.42 L (4.60-5.80) X10*6/uL Hgb 14.1 (14.0-18.0) g/dl Hct 39.6 L (42.0-52.0) % MCV 89.6 (80.0-98.0) fL MCH 31.9 (27.0-33.0) pg MCHC 35.6 (31.0-36.0) g/dl RDW 13.3 (11.0-16.0) % Plt Count 172 (160-400) X10*3/uL MPV 10.8 (9.4-12.4) fL Immature Gran % (Auto) 0.1 (0.0-0.4) % Neut % (Auto) 41.5 L (45-73) % Lymph % (Auto) 45.0 H (20-40) % [place] % (Auto) 11.0 (2-11) % Eos % (Auto) 2.0 (0-4) % Baso % (Auto) 0.4 (0-2) % Lymph # (Auto) 3.6 (1.2-4.9) X10*3/uL [place] # (Auto) 0.9 (0.1-1.2) X10*3/uL Eos # (Auto) 0.2 (0.0-0.4) X10*3/uL Baso # (Auto) 0.0 (0.0-0.2) X10*3/uL Abs Immat Gran (auto) 0.01 (0.00-0.03) X10*3/uL Absolute Neuts (auto) 3.3 (2.0-8.3) x10*3/uL Absolute Nucleated RBC 0.000 (0.0-0.012) X10*3/uL Nucleated RBC % (auto) 0.0 (0.0-0.2) /100WBC VBG pH 7.39 (7.32-7.43) VBG pCO2 50 mmHg VBG pO2 60 mmHg VBG HCO3 31 H (22-26) mmol/L VBG O2 Saturation 87.0 % VBG Base Excess 5.2 mmol/L Sodium 136 (135-145) mmol/L Potassium 4.0 D (3.3-5.1) mmol/L Chloride 101 (96-108) mmol/L Carbon Dioxide 26 (22-29) mmol/L Anion Gap 13 (12-20) BUN 17 H (9-16) mg/dL Creatinine 0.89 (0.5-1.4) mg/dL Estim Creat Clear Calc 109.2 Estimated GFR > 60 Random Glucose 203 H (60-115) mg/dL Calcium 9.1 (8.4-10.2) mg/dL Total Bilirubin 1.0 (0.0-1.0) mg/dL AST 174 H (5-37) U/L ALT 281 H (0-40) U/L Alkaline Phosphatase 127 H (39-117) U/L Total Protein 7.1 (6.5-8.0) g/dL Albumin 3.4 L (3.5-5.0) g/dL ABG Data ABG Results: Mild respiratory acidosis Chronic Conditions Patient?s care impacted by: Other (Asthma) Critical Care Time Critical Care Time Critical Care Time: Yes Total Critical Care Time: 90 Attestation: bipapa Discharge Plan Discharge Clinical Impression: Asthma exacerbation Qualifiers: Asthma severity: moderate Asthma persistence: unspecified Qualified Code(s): J 45.901 - Unspecified asthma with (acute) exacerbation Patient Disposition: Admitted As Inpatient Print Language: Tamazight
[2024-08-13] MEDS: Albuterol Sulfate 5 MG, Albuterol/Iprat 2.5/0.5MG 3 ML 3 ML INHALE (14:57)
[2024-08-13 14:58] LABS: MANUAL DIFF FLAG NO
[2024-08-13] MEDS: 0.9 % Sodium Chloride 1,000 ML 999 ML IVCONT (14:58)
[2024-08-13 15:00] LABS: Basophils Percent Auto 0.4 % (0-2); Eosinophils Absolute Auto 0.2 X10*3/uL (0.0-0.4); Hematocrit 39.6 % (42.0-52.0); Hemoglobin 14.1 g/dl (14.0-18.0); Imm Gran Abs Auto 0.01 X10*3/uL (0.00-0.03); Imm Gran Pct Auto 0.1 % (0.0-0.4); Lymphocytes Absolute Auto 3.6 X10*3/uL (1.2-4.9); Mean Corpuscular HGB Conc 35.6 g/dl (31.0-36.0); Mean Corpuscular Hemoglobin 31.9 pg (27.0-33.0); Mean Corpuscular Volume 89.6 fL (80.0-98.0); Mean Platelet Volume 10.8 fL (9.4-12.4); Monocytes Absolute Auto 0.9 X10*3/uL (0.1-1.2); Neutrophils Absolute Auto 3.3 x10*3/uL (2.0-8.3); Neutrophils Percent Auto 41.5 % (45-73); Platelet Count 172 X10*3/uL (160-400); Red Blood Count 4.42 X10*6/uL (4.60-5.80); Red Cell Distribution Width 13.3 % (11.0-16.0)
[2024-08-13 15:05] LABS: VBG Base Excess 5.2 mmol/L; VBG HCO3 31 mmol/L (22-26); VBG pCO2 50 mmHg; VBG pH 7.39 (7.32-7.43); VBG pO2 60 mmHg
[2024-08-13 15:06] LABS: Venous Blood Gas Refer to POC result
--- NOTE | 2024-08-13 15:22 | PC.NURSE ---
pt was BIBA from home for acute onset diff breathing. pt arrives on CPAP. per EMS pt was speaking in 1-2 word sentences, O2 was in the 60s. EMS gave pt 2 duonebs, 2G magnesium, 125 mg Solumedrol, and 0.3mg Epi. pt reports that he was at his home and there was a green party at his house, he stated that he believes his SOB is due to anxiety. pt was 77% on room upon arrival to [facility] rm 5. continued CPAP at this time. Pt arrives with an 18G in his LAC. He is speaking in full sentences at this time. labs sent, 1L NS started and infusing. plan for cxr and, EKG
[2024-08-13 15:52] LABS: Alanine Aminotransferase 281 U/L (0-40); Albumin Level 3.4 g/dL (3.5-5.0); Alkaline Phosphatase 127 U/L (39-117); Anion Gap 13 (12-20); Aspartate Amino Transferase 174 U/L (5-37); Blood Urea Nitrogen 17 mg/dL (9-16); Calcium 9.1 mg/dL (8.4-10.2); Carbon Dioxide 26 mmol/L (22-29); Chloride 101 mmol/L (96-108); Creatinine Clr Calc Pharmacy 109.2; Estimated Glomerular Filt Rate > 60; Glucose Random 203 mg/dL (60-115); Sodium 136 mmol/L (135-145); Total Protein 7.1 g/dL (6.5-8.0)
--- NOTE | 2024-08-13 17:16 | P.HPHOSP_ITS ---
History of Present Illness Date of Service: 08/13/24 Chief Complaint: sob 48M PMH copd/severe persistent asthma, presented with sob. patient was feeling at baseline earlier on day of admission, was in crowded room and suddenly felt panicky and overwhelmed with severe sob. called EMS, found to be severely hypoxic and wheezy, saturating 60s on room air, placed on bipap. eventually weaned to 5L oxymask. Review of Systems 2 Review of Systems: Yes all other systems are reviewed and are negative [facility] Medical History Tobacco abuse COPD (chronic obstructive pulmonary disease) Asthma Family History Mother Colon cancer Uterus cancer Breast cancer Paternal Grandmother Cancer Paternal Aunt Cancer Surgical History H/O hemorrhoidectomy H/O colonoscopy Social History Alcohol intake: current Alcohol intake frequency: holidays/special occasions only Alcohol type: hard liquor Patient Tobacco Use Status: Current everyday Tobacco user Cigarette Packs Per Day: 0.5 Cigarettes Per Day: 5 Years Smoked: 15-20 years Smoked in Last 30 Days: Yes Use of substances other than those prescribed or required for medical reasons: Yes Substance Use Type: Crack/Cocaine, Heroin and Marijuana Advance Directives: No Advance Directives Information Provided: No Do you have a plan to hurt others: No Plan Meds Allergies Allergy/AdvReac Type Severity Reaction Status Date / Time trazodone [Trazodone] Allergy Unknown PRIAPISM Verified 08/13/24 14:50 Active Medications: Current Medications Albuterol/Ipratropium (Albuterol/Iprat 2.5/0.5mg 3 Ml Ampul.Neb) 3 ml INHALE RQ4H WHILE AWAKE [facility] Methylprednisolone Sodium Succinate (Methylprednisolone Sod Succ 40 Mg/Ml Vial) 40 mg IVPUSH Q12H [facility] Home Medications ?Medication ?Instructions ?Recorded ?Confirmed ?Last Taken ?Type albuterol sulfate 90 mcg/actuation 2 inh inhalation Q6H PRN 07/12/23 Unknown History aerosol inhaler (ProAir HFA) Physical Exam 2 Vital Signs and Narrative: Vital Signs: Last Vital Signs Temp 97.0 F 08/13/24 16:00 Pulse 75 08/13/24 16:00 Resp 16 08/13/24 16:00 BP 117/47 L 08/13/24 16:00 Pulse Ox 94 08/13/24 16:00 O2 Del Method Oxymask 08/13/24 16:00 O2 Flow Rate 5 08/13/24 16:00 BMI result Body Mass Index 23.5 General: AO X 3, resp distress Resp: diminsihed and wheezy bilateral, no accessory muscles used CVS: S1,S2,RRR GI: soft, non tender, non distended Neuro: motor grossly intact, alert Psych: appropriate affect, appropriate insight Results Labs 08/13/24 14:54 08/13/24 15:18 Labs: Laboratory Results - last 24 hr 08/13/24 08/13/24 08/13/24 14:54 15:01 15:18 MCV 89.6 MCH 31.9 MCHC 35.6 RDW 13.3 Plt Count 172 MPV 10.8 Immature Gran % (Auto) 0.1 Neut % (Auto) 41.5 L Lymph % (Auto) 45.0 H [place] % (Auto) 11.0 Eos % (Auto) 2.0 Baso % (Auto) 0.4 Lymph # (Auto) 3.6 [place] # (Auto) 0.9 Eos # (Auto) 0.2 Baso # (Auto) 0.0 Abs Immat Gran (auto) 0.01 Absolute Neuts (auto) 3.3 Absolute Nucleated RBC 0.000 Nucleated RBC % (auto) 0.0 VBG pH 7.39 VBG pCO2 50 VBG pO2 60 VBG HCO3 31 H VBG O2 Saturation 87.0 VBG Base Excess 5.2 Anion Gap 13 Estim Creat Clear Calc 109.2 Estimated GFR > 60 Random Glucose 203 H Calcium 9.1 Total Bilirubin 1.0 AST 174 H ALT 281 H Alkaline Phosphatase 127 H Total Protein 7.1 Albumin 3.4 L Imaging Radiologist's Impressions: Impressions Chest X-Ray 08/13/24 14:49 IMPRESSION: Right basilar radiopacity may reflect atelectasis versus infectious/inflammatory etiology. Electronically signed by: Marcelino Lynn MD 08/13/2024 04:19 PM EDT Assessment and Plan (1) Asthma exacerbation: Qualifiers: Asthma persistence: unspecified Asthma severity: moderate Qualified Code(s): J45.901 - Unspecified asthma with (acute) exacerbation Status: Acute Plan 48M PMH copd/severe persistent asthma, presented with sob Acute hypoxic respiratory failure secondary to COPD/severe persistent asthma with acute decompensation Continue IV steroids and wean oxygen as tolerated Continue DuoNebs Smoking cessation Nicoderm DVT prophylaxis Lovenox Full Code Patient with severe asthma/COPD and history of intubation therefore expected require at least 2 midnights inpatient Quality Stroke Does the patient have a stroke diagnosis?: No VTE Prior VTE?: No VTE Risk Level:: Medical - moderate - high VTE Device Contraindication: Treatment Not Indicated VTE Drug Contraindication: N/A - Med Ordered
[2024-08-13] MEDS: methylPREDNISolone Sod Succ 40 MG/ML VIAL IVPUSH (18:34)
[2024-08-13] MEDS: Magnesium Sulfate/H2O 2 GM/50 ML PIGGYBACK IV (18:34)
[2024-08-13] MEDS: Nicotine 21 MG PATCH.TD24 TRANSDERMA (18:34)
[2024-08-13] MEDS: Albuterol/Iprat 2.5/0.5MG 3 ML AMPUL.NEB INHALE (18:41)
--- NOTE | 2024-08-13 19:04 | PHA.MEDREC ---
Addendum entered by Jo Felix RPh 08/13/24 19:26: med rec reviewed by pharmacist Original Note: Pharmacy Consult ? Medication Reconciliation Pharmacy has completed the medication reconciliation. Spoke with patient to confirm. He takes clonidine prn. He got out of detox earlier this year and they sent him home with hydroxyzine and another medication that he cannot remember. He does not know the dose of hydroxyzine and it is not in his claims. He takes it the same way as his clonidine (2 tabs at bedtime as needed for sleep/anxiety). He did not take the clonidine today. He ran out of his lexapro and mirtazepine a while back.
[2024-08-13] MEDS: Melatonin 3 MG TABLET 6 MG PO (23:26)
[2024-08-13] MEDS: 0.9 % Sodium Chloride Flush 3 ML SYRINGE IVFLUSH (23:26)
[2024-08-13] MEDS: Acetaminophen 325 MG TABLET 650 MG PO (23:27)
[2024-08-14] VITALS (12 sets, daily range): BP systolic 128–177; BP diastolic 63–110; PULSE 60–94; RESP 12–20; TEMP 36.4–37.2; O2SAT 96–100; BMI 22.5
[2024-08-14] MEDS: Calcium Carbonate 750 MG TAB.CHEW PO ×3 (01:52→20:21)
[2024-08-14 04:50] LABS: Hematocrit 39.7 % (42.0-52.0); Hemoglobin 13.8 g/dl (14.0-18.0); Mean Corpuscular HGB Conc 34.8 g/dl (31.0-36.0); Mean Corpuscular Hemoglobin 31.1 pg (27.0-33.0); Mean Corpuscular Volume 89.4 fL (80.0-98.0); Mean Platelet Volume 11.2 fL (9.4-12.4); Platelet Count 147 X10*3/uL (160-400); Red Blood Count 4.44 X10*6/uL (4.60-5.80); Red Cell Distribution Width 13.4 % (11.0-16.0); White Blood Count 13.3 X10*3/uL (4.8-10.8)
[2024-08-14] MEDS: methylPREDNISolone Sod Succ 40 MG/ML VIAL IVPUSH ×2 (05:10→16:22)
[2024-08-14 05:13] LABS: Anion Gap 12 (12-20); Blood Urea Nitrogen 15 mg/dL (9-16); Calcium 9.2 mg/dL (8.4-10.2); Carbon Dioxide 26 mmol/L (22-29); Chloride 105 mmol/L (96-108); Creatinine Clr Calc Pharmacy 109.2; Estimated Glomerular Filt Rate > 60; Glucose Fasting 171 mg/dL (60-99); Potassium 4.9 mmol/L (3.3-5.1); Sodium 138 mmol/L (135-145)
[2024-08-14 05:31] LABS: Estimated Average Glucose 114 mg/dL; Hemoglobin A1C 137.0845 umol/L; Hemoglobin A1c % 5.6 % (<6.0); Total Hemoglobin (HGBA1C) 3629.2785 umol/L
[2024-08-14] MEDS: Acetaminophen 325 MG TABLET 650 MG PO ×2 (05:51→16:20)
[2024-08-14] MEDS: Omeprazole 40 MG CAPSULE.DR PO (07:23)
[2024-08-14] MEDS: HYDROmorphone HCl 0.5 MG/0.5 ML SYRINGE IVPUSH (07:23)
[2024-08-14] MEDS: Albuterol/Iprat 2.5/0.5MG 3 ML AMPUL.NEB INHALE ×4 (07:36→18:53)
--- NOTE | 2024-08-14 08:56 | P.PNIM_ITS ---
Subjective Subjective Date of Service: 08/14/24 Interval History: sob imrpoved, starting to feel heroin withdrawal Physical Exam 2 Vital Signs: Vital Signs: Last Vital Signs Temp 98.4 F 08/14/24 08:18 Pulse 70 08/14/24 08:18 Resp 14 08/14/24 08:18 BP 147/88 H 08/14/24 08:18 Pulse Ox 98 08/14/24 08:18 O2 Del Method Room Air 08/14/24 08:18 O2 Flow Rate 3 08/14/24 05:52 BMI result Body Mass Index 23.5 better air movement with less wheezing, but still a bit tight some diaphoresis Objective Data Active Medications Acetaminophen (Acetaminophen 325 Mg Tablet) 650 mg PO Q6H PRN PRN Reason: Pain, Mild (Pain Scale 1-3), fever or headache Last Admin: 08/14/24 05:51 Dose: 650 mg Documented By: ABBI Albuterol/Ipratropium (Albuterol/Iprat 2.5/0.5mg 3 Ml Ampul.Neb) 3 ml INHALE RQ4H WHILE AWAKE [facility] Last Admin: 08/14/24 07:36 Dose: 3 ml Documented By: CUATE Calcium Carbonate (Calcium Carbonate 750 Mg Tab.Chew) 750 mg PO Q4H PRN PRN Reason: Heartburn Last Admin: 08/14/24 07:09 Dose: 750 mg Documented By: ANKIT Enoxaparin Sodium (Enoxaparin Sodium 40 Mg/0.4 Ml Syringe) 40 mg SUBCUT Q24H [facility] Magnesium Hydroxide (Milk Of Magnesia 30 Ml Oral.Susp) 30 ml PO DAILY PRN PRN Reason: Constipation Melatonin (Melatonin 3 Mg Tablet) 6 mg PO BEDTIME PRN PRN Reason: Insomnia Last Admin: 08/13/24 23:26 Dose: 6 mg Documented By: ABBI Methylprednisolone Sodium Succinate (Methylprednisolone Sod Succ 40 Mg/Ml Vial) 40 mg IVPUSH Q12H [facility] Last Admin: 08/14/24 05:10 Dose: 40 mg Documented By: ABBI Nicotine (Nicotine 21 Mg Patch.Td24) 21 mg TRANSDERMA DAILY [facility] Last Admin: 08/13/24 18:34 Dose: 21 mg Documented By: ROCKY Omeprazole (Omeprazole 40 Mg Capsule.Dr) 40 mg PO DAILY@0630 [facility] Last Admin: 08/14/24 07:23 Dose: 40 mg Documented By: ANKIT Sodium Chloride (0.9 % Sodium Chloride Flush 3 Ml Syringe) 3 ml IVFLUSH QSHIFT [facility] Last Admin: 08/13/24 23:26 Dose: 3 ml Documented By: ABBI Labs 08/14/24 04:35 08/14/24 04:35 Labs: Laboratory Results - last 24 hr 08/13/24 08/13/24 08/13/24 14:54 15:01 15:18 MCV 89.6 MCH 31.9 MCHC 35.6 RDW 13.3 Plt Count 172 MPV 10.8 Immature Gran % (Auto) 0.1 Neut % (Auto) 41.5 L Lymph % (Auto) 45.0 H [place] % (Auto) 11.0 Eos % (Auto) 2.0 Baso % (Auto) 0.4 Lymph # (Auto) 3.6 [place] # (Auto) 0.9 Eos # (Auto) 0.2 Baso # (Auto) 0.0 Abs Immat Gran (auto) 0.01 Absolute Neuts (auto) 3.3 Absolute Nucleated RBC 0.000 Nucleated RBC % (auto) 0.0 VBG pH 7.39 VBG pCO2 50 VBG pO2 60 VBG HCO3 31 H VBG O2 Saturation 87.0 VBG Base Excess 5.2 Anion Gap 13 Estim Creat Clear Calc 109.2 Estimated GFR > 60 Random Glucose 203 H Fasting Glucose Estimat Average Glucose 114 Hemoglobin A1c % 5.6 Calcium 9.1 Total Bilirubin 1.0 AST 174 H ALT 281 H Alkaline Phosphatase 127 H Total Protein 7.1 Albumin 3.4 L 08/14/24 04:35 MCV 89.4 MCH 31.1 MCHC 34.8 RDW 13.4 Plt Count 147 L MPV 11.2 Immature Gran % (Auto) Neut % (Auto) Lymph % (Auto) [place] % (Auto) Eos % (Auto) Baso % (Auto) Lymph # (Auto) [place] # (Auto) Eos # (Auto) Baso # (Auto) Abs Immat Gran (auto) Absolute Neuts (auto) Absolute Nucleated RBC 0.000 Nucleated RBC % (auto) 0.0 VBG pH VBG pCO2 VBG pO2 VBG HCO3 VBG O2 Saturation VBG Base Excess Anion Gap 12 Estim Creat Clear Calc 109.2 Estimated GFR > 60 Random Glucose Fasting Glucose 171 H Estimat Average Glucose Hemoglobin A1c % Calcium 9.2 Total Bilirubin AST ALT Alkaline Phosphatase Total Protein Albumin Assessment and Plan (1) Asthma exacerbation: Status: Acute Plan 48M PMH copd/severe persistent asthma, presented with sob Acute hypoxic respiratory failure secondary to COPD/severe persistent asthma with acute decompensation Continue IV steroids, now on room air Continue DuoNebs opiate dependence with withdrawal addiction kirit, interested in methadone Smoking cessation Nicoderm DVT prophylaxis Lovenox Full Code reason for continued hospitalization:high risk for decompensation (history of intubation), opiate withdrawal Quality Stroke Does the patient have a stroke diagnosis?: No VTE Prior VTE?: No VTE Risk Level:: Medical - moderate - high VTE Device Contraindication: Treatment Not Indicated VTE Drug Contraindication: N/A - Med Ordered
--- NOTE | 2024-08-14 09:43 | HO.ADDICT_ITS ---
History of Present Illness Date of Service: 08/14/24 Chief Complaint: Asthma/Copd Reason for Consult: OUD Sources of Information: patient interviewed and chart reviewed HPI Narrative: Patient is a 48 year old male medically admitted with asthma exacerbation. Known history of opiate use disorder and currently reporting withdrawal sx. Seen in room 5 of main ED, awaiting transfer to medical floor. Awake, alert, pleasant and engaged in interview. He reports many years of opioid use, with 7 years in sustained recovery, until his fiancee 4 years ago at which point he had a recurrence of use--which continues today. He states use had decreased quite a bit (2-4 bags a day) and he had been buying methadone and using this instead of fentanyl, until a few days ago when he ran out. He believes he was taking abut 40mg a day, but there is no real way to know dose. He wishes to continue methadone Reporting mild withdrawal sx, body aches and anxiety chart and labs rewviewed Review of Systems Constitutional: Reports as per HPI Diagnostics Vital Signs (24Hr): Vital Signs - 24 hr 08/13/24 14:44 08/13/24 14:45 08/13/24 14:50 Temperature 97.1 F Pulse Rate 71 74 89 Respiratory Rate 24 H 20 28 H Blood Pressure 142/80 H Pulse Oximetry 77 L 96 Oxygen Delivery Method Room Air CPAP Oxygen Flow Rate 08/13/24 15:02 08/13/24 16:00 08/13/24 18:23 Temperature 97.0 F 97.2 F Pulse Rate 75 65 Respiratory Rate 18 16 15 Blood Pressure 117/47 L 99/51 L Pulse Oximetry 94 94 Oxygen Delivery Method Oxymask Oxymask Oxygen Flow Rate 5 5 08/13/24 18:41 08/13/24 20:00 08/13/24 22:49 Temperature 97.6 F Pulse Rate 76 74 76 Respiratory Rate 18 16 13 Blood Pressure 117/56 L 118/71 Pulse Oximetry 97 98 Oxygen Delivery Method Oxymask Oxymask Oxygen Flow Rate 5 08/14/24 01:18 08/14/24 04:06 08/14/24 05:52 Temperature 97.5 F 98.5 F Pulse Rate 73 69 79 Respiratory Rate 18 12 20 Blood Pressure 141/110 H 131/79 137/81 Pulse Oximetry 99 100 97 Oxygen Delivery Method Oxymask Oxymask Oxymask Oxygen Flow Rate 5 3 08/14/24 07:36 08/14/24 08:18 Temperature 98.4 F Pulse Rate 79 70 Respiratory Rate 20 14 Blood Pressure 147/88 H Pulse Oximetry 98 Oxygen Delivery Method Room Air Oxygen Flow Rate BMI result Body Mass Index 23.5 Labs 08/14/24 04:35 08/14/24 04:35 Labs: Laboratory Results - last 48 hr 08/13/24 08/13/24 08/13/24 14:54 15:01 15:18 WBC 8.0 RBC 4.42 L Hgb 14.1 Hct 39.6 L MCV 89.6 MCH 31.9 MCHC 35.6 RDW 13.3 Plt Count 172 MPV 10.8 Immature Gran % (Auto) 0.1 Neut % (Auto) 41.5 L Lymph % (Auto) 45.0 H [place] % (Auto) 11.0 Eos % (Auto) 2.0 Baso % (Auto) 0.4 Lymph # (Auto) 3.6 [place] # (Auto) 0.9 Eos # (Auto) 0.2 Baso # (Auto) 0.0 Abs Immat Gran (auto) 0.01 Absolute Neuts (auto) 3.3 Absolute Nucleated RBC 0.000 Nucleated RBC % (auto) 0.0 VBG pH 7.39 VBG pCO2 50 VBG pO2 60 VBG HCO3 31 H VBG O2 Saturation 87.0 VBG Base Excess 5.2 Sodium 136 Potassium 4.0 D Chloride 101 Carbon Dioxide 26 Anion Gap 13 BUN 17 H Creatinine 0.89 Estim Creat Clear Calc 109.2 Estimated GFR > 60 Random Glucose 203 H Fasting Glucose Estimat Average Glucose 114 Hemoglobin A1c % 5.6 Calcium 9.1 Total Bilirubin 1.0 AST 174 H ALT 281 H Alkaline Phosphatase 127 H Total Protein 7.1 Albumin 3.4 L 08/14/24 04:35 WBC 13.3 H RBC 4.44 L Hgb 13.8 L Hct 39.7 L MCV 89.4 MCH 31.1 MCHC 34.8 RDW 13.4 Plt Count 147 L MPV 11.2 Immature Gran % (Auto) Neut % (Auto) Lymph % (Auto) [place] % (Auto) Eos % (Auto) Baso % (Auto) Lymph # (Auto) [place] # (Auto) Eos # (Auto) Baso # (Auto) Abs Immat Gran (auto) Absolute Neuts (auto) Absolute Nucleated RBC 0.000 Nucleated RBC % (auto) 0.0 VBG pH VBG pCO2 VBG pO2 VBG HCO3 VBG O2 Saturation VBG Base Excess Sodium 138 Potassium 4.9 D Chloride 105 Carbon Dioxide 26 Anion Gap 12 BUN 15 Creatinine 0.89 Estim Creat Clear Calc 109.2 Estimated GFR > 60 Random Glucose Fasting Glucose 171 H Estimat Average Glucose Hemoglobin A1c % Calcium 9.2 Total Bilirubin AST ALT Alkaline Phosphatase Total Protein Albumin Imaging Radiology Impressions: ITS Impressions Chest X-Ray 08/13/24 14:49 IMPRESSION: Right basilar radiopacity may reflect atelectasis versus infectious/inflammatory etiology. Electronically signed by: Marcelino Lynn MD 08/13/2024 04:19 PM EDT RP Mental Status Exam Mental Status Exam Patient Appearance: Appropriate Level of Consciousness: Awake, Appropriate and Alert Medications Medications Current Medications Acetaminophen (Acetaminophen 325 Mg Tablet) 650 mg PO Q6H PRN PRN Reason: Pain, Mild (Pain Scale 1-3), fever or headache Last Admin: 08/14/24 05:51 Dose: 650 mg Albuterol/Ipratropium (Albuterol/Iprat 2.5/0.5mg 3 Ml Ampul.Neb) 3 ml INHALE RQ4H WHILE [facility]KE [facility] Last Admin: 08/14/24 07:36 Dose: 3 ml Calcium Carbonate (Calcium Carbonate 750 Mg Tab.Chew) 750 mg PO Q4H PRN PRN Reason: Heartburn Last Admin: 08/14/24 07:09 Dose: 750 mg Enoxaparin Sodium (Enoxaparin Sodium 40 Mg/0.4 Ml Syringe) 40 mg SUBCUT Q24H [facility] Magnesium Hydroxide (Milk Of Magnesia 30 Ml Oral.Susp) 30 ml PO DAILY PRN PRN Reason: Constipation Melatonin (Melatonin 3 Mg Tablet) 6 mg PO BEDTIME PRN PRN Reason: Insomnia Last Admin: 08/13/24 23:26 Dose: 6 mg Methylprednisolone Sodium Succinate (Methylprednisolone Sod Succ 40 Mg/Ml Vial) 40 mg IVPUSH Q12H [facility] Last Admin: 08/14/24 05:10 Dose: 40 mg Nicotine (Nicotine 21 Mg Patch.Td24) 21 mg TRANSDERMA DAILY [facility] Last Admin: 08/13/24 18:34 Dose: 21 mg Omeprazole (Omeprazole 40 Mg Capsule.) 40 mg PO DAILY@0630 [facility] Last Admin: 08/14/24 07:23 Dose: 40 mg Sodium Chloride (0.9 % Sodium Chloride Flush 3 Ml Syringe) 3 ml IVFLUSH QSHIFT [facility] Last Admin: 08/14/24 09:24 Dose: Not Given Allergies Allergies Allergy/AdvReac Type Severity Reaction Status Date / Time trazodone [Trazodone] Allergy Unknown PRIAPISM Verified 08/13/24 14:50 Assessment & Plan Assessment & Plan (1) Opioid use disorder, severe, dependence: Status: Acute Code(s): F11.20 - Opioid dependence, uncomplicated Assessment and Plan: * methadone 20mg x1 * reassess need for additional dose today * HIV and Hepatitis screens ordered secondary to risk factors * community planning technician to assist with OTP referral Total time managing care of this patient today ____ minutes. PMFSH Past Medical History Medical History (Updated 08/14/24 @ 09:43 by Jing Bolden CNP) Heroin addiction Tobacco abuse COPD (chronic obstructive pulmonary disease) Asthma Family History Family History Mother Colon cancer Uterus cancer Breast cancer Paternal Grandmother Cancer Paternal Aunt Cancer Surgical History Surgical History H/O hemorrhoidectomy H/O colonoscopy Social History Social History Household Members: Family Housing: House Alcohol intake: current Alcohol intake frequency: holidays/special occasions only Alcohol type: hard liquor Patient Tobacco Use Status: Current everyday Tobacco user Tobacco use type: Cigarette Cigarette Packs Per Day: 0.5 Cigarettes Per Day: 10.0 Years Smoked: 15-20 years Substance Use Type: Crack/Cocaine and Heroin
[2024-08-14] MEDS: methADONE HCl 20 MG/2 ML ORAL.CONC PO ×2 (10:04→14:52)
[2024-08-14] MEDS: Nicotine 21 MG PATCH.TD24 TRANSDERMA (10:05)
[2024-08-14] MEDS: Enoxaparin Sodium 40 MG/0.4 ML SYRINGE SUBCUT (10:05)
--- NOTE | 2024-08-14 11:52 | PC.NURSE ---
Addendum entered by Ian Garcia RN 08/14/24 11:53: informed MD of pt's BP Original Note: informed MD pt's c/o severe heartburn w/ PRN meds having no effect. informed md pt c/o pain 8/10 in between shoulders, acute, prn tylenol having no effect.
[2024-08-14 12:34] LABS: HIV AB/AG Nonreactive (Nonreactive); HIV Num 1 0.05 S/CO (0.00-0.99); ~HepC Num1 14.04 S/CO (0.00-0.79); ~Hepatitis C Antibody Reactive (Nonreactive)
--- NOTE | 2024-08-14 16:23 | MHC.RECOVRN ---
Met with pt to follow up after receiving additional 20 mg methadone (total 40 mg today). Pt reports feeling less withdrawal symptoms, less hot/cold feeling. Reports headache--t/w notified pts RN. Pt denies other questions or concerns for t/w. Jing Bolden APRN, aware.
--- NOTE | 2024-08-14 17:59 | MHC.RECOVSUP ---
? Reason for consult Recovery support. o Current location: [facility] o Identified substance use concern: Heroin - Support ? Intervention: o Community resources provided o Harm reduction discussion ? Plan: o Patient to follow up with H after discharge ? Additional information: Met with Patient and we talked about recovery and the different pathways.. We also talked about Harm reduction and MAT.
[2024-08-14] MEDS: 0.9 % Sodium Chloride Flush 3 ML SYRINGE IVFLUSH (20:22)
[2024-08-14] MEDS: Acetaminophen 325 MG TABLET 975 MG PO (21:38)
[2024-08-14] MEDS: Zolpidem Tartrate 5 MG TABLET PO (22:25)
[2024-08-15 03:37] VITALS: BP 151/85; PULSE 69; RESP 12; TEMP 36.6; O2SAT 98
[2024-08-15] MEDS: Acetaminophen 325 MG TABLET 650 MG PO (06:30)
[2024-08-15] MEDS: Omeprazole 40 MG CAPSULE.DR PO (06:30)
[2024-08-15] MEDS: methylPREDNISolone Sod Succ 40 MG/ML VIAL IVPUSH (06:30)
[2024-08-15] MEDS: Calcium Carbonate 750 MG TAB.CHEW PO (06:30)
[2024-08-15 06:37] LABS: Anion Gap 14 (12-20); Blood Urea Nitrogen 11 mg/dL (9-16); Carbon Dioxide 24 mmol/L (22-29); Chloride 106 mmol/L (96-108); Creatinine Clr Calc Pharmacy 124.5; Estimated Glomerular Filt Rate > 60; Glucose Fasting 95 mg/dL (60-99); Potassium 4.5 mmol/L (3.3-5.1); Sodium 139 mmol/L (135-145)
[2024-08-15 06:41] LABS: Hematocrit 37.4 % (42.0-52.0); Hemoglobin 12.9 g/dl (14.0-18.0); Mean Corpuscular HGB Conc 34.5 g/dl (31.0-36.0); Mean Corpuscular Hemoglobin 31.3 pg (27.0-33.0); Mean Corpuscular Volume 90.8 fL (80.0-98.0); Mean Platelet Volume 11.7 fL (9.4-12.4); Platelet Count 138 X10*3/uL (160-400); Red Blood Count 4.12 X10*6/uL (4.60-5.80); Red Cell Distribution Width 13.9 % (11.0-16.0); White Blood Count 15.2 X10*3/uL (4.8-10.8)
[2024-08-15] MEDS: Nicotine 21 MG PATCH.TD24 TRANSDERMA (07:59)
[2024-08-15 08:00] VITALS: BP 142/81; PULSE 75; RESP 20; TEMP 36.4; O2SAT 100
[2024-08-15] MEDS: 0.9 % Sodium Chloride Flush 3 ML SYRINGE IVFLUSH (08:00)
[2024-08-15] MEDS: methADONE HCl 20 MG/2 ML ORAL.CONC 45 MG PO (08:00)
[2024-08-15] MEDS: Butalb/Acetamin/Caff 50/325/40 TABLET 1 TAB PO (08:56)
--- NOTE | 2024-08-15 09:33 | P.PNADD_ITS ---
Subjective Subjective Date of Service: 08/15/24 Reason For Visit: Asthma/Copd Interim History: Patient seen in follow up Methadone 45mg administered this morning Reports feeling better . was able to eat breakfast overnight reports chills and upset stomach this morning Plan for d/c today. Requesting to be referred to [facility] Review of Systems Constitutional: Reports as per HPI Mental Status Exam Mental Status Exam Patient Appearance: Appropriate Level of Consciousness: Awake, Appropriate and Alert Patient Behavior: Appropriate and Talkative Mood Description: Calm Affect Description: Flat Speech Pattern: Clear Diagnostics Vital Signs (24Hr): Vital Signs - 24 hr 08/14/24 11:10 08/14/24 11:55 08/14/24 15:48 Temperature 99.0 F Pulse Rate 65 60 67 Respiratory Rate 20 18 18 Blood Pressure 177/90 H Pulse Oximetry 100 Oxygen Delivery Method Room Air 08/14/24 16:27 08/14/24 18:54 08/14/24 20:00 Temperature 98.6 F 98.6 F Pulse Rate 88 88 94 Respiratory Rate 12 12 14 Blood Pressure 144/82 H 140/74 H Pulse Oximetry 100 96 Oxygen Delivery Method Room Air Room Air 08/14/24 23:54 08/15/24 03:37 08/15/24 08:00 Temperature 99 F 97.8 F 97.5 F Pulse Rate 75 69 75 Respiratory Rate 12 12 20 Blood Pressure 128/63 151/85 H 142/81 H Pulse Oximetry 99 98 100 Oxygen Delivery Method Room Air Room Air Room Air BMI result Body Mass Index 22.5 Labs 08/15/24 06:05 08/15/24 06:05 Labs: Laboratory Results - last 48 hr 08/13/24 08/13/24 08/13/24 14:54 15:01 15:18 WBC 8.0 RBC 4.42 L Hgb 14.1 Hct 39.6 L MCV 89.6 MCH 31.9 MCHC 35.6 RDW 13.3 Plt Count 172 MPV 10.8 Immature Gran % (Auto) 0.1 Neut % (Auto) 41.5 L Lymph % (Auto) 45.0 H [place] % (Auto) 11.0 Eos % (Auto) 2.0 Baso % (Auto) 0.4 Lymph # (Auto) 3.6 [place] # (Auto) 0.9 Eos # (Auto) 0.2 Baso # (Auto) 0.0 Abs Immat Gran (auto) 0.01 Absolute Neuts (auto) 3.3 Absolute Nucleated RBC 0.000 Nucleated RBC % (auto) 0.0 VBG pH 7.39 VBG pCO2 50 VBG pO2 60 VBG HCO3 31 H VBG O2 Saturation 87.0 VBG Base Excess 5.2 Sodium 136 Potassium 4.0 D Chloride 101 Carbon Dioxide 26 Anion Gap 13 BUN 17 H Creatinine 0.89 Estim Creat Clear Calc 109.2 Estimated GFR > 60 Random Glucose 203 H Fasting Glucose Estimat Average Glucose 114 Hemoglobin A1c % 5.6 Calcium 9.1 Total Bilirubin 1.0 AST 174 H ALT 281 H Alkaline Phosphatase 127 H Total Protein 7.1 Albumin 3.4 L Hepatitis C Ab (EIA) HIV 1&2 Ab/P24 Ag 4thGn 08/14/24 08/14/24 08/15/24 04:35 10:53 06:05 WBC 13.3 H 15.2 H RBC 4.44 L 4.12 L Hgb 13.8 L 12.9 L Hct 39.7 L 37.4 L MCV 89.4 90.8 MCH 31.1 31.3 MCHC 34.8 34.5 RDW 13.4 13.9 Plt Count 147 L 138 L MPV 11.2 11.7 Immature Gran % (Auto) Neut % (Auto) Lymph % (Auto) [place] % (Auto) Eos % (Auto) Baso % (Auto) Lymph # (Auto) [place] # (Auto) Eos # (Auto) Baso # (Auto) Abs Immat Gran (auto) Absolute Neuts (auto) Absolute Nucleated RBC 0.000 0.000 Nucleated RBC % (auto) 0.0 0.0 VBG pH VBG pCO2 VBG pO2 VBG HCO3 VBG O2 Saturation VBG Base Excess Sodium 138 139 Potassium 4.9 D 4.5 Chloride 105 106 Carbon Dioxide 26 24 Anion Gap 12 14 BUN 15 11 Creatinine 0.89 0.76 Estim Creat Clear Calc 109.2 124.5 Estimated GFR > 60 > 60 Random Glucose Fasting Glucose 171 H 95 Estimat Average Glucose Hemoglobin A1c % Calcium 9.2 9.0 Total Bilirubin AST ALT Alkaline Phosphatase Total Protein Albumin Hepatitis C Ab (EIA) Reactive H HIV 1&2 Ab/P24 Ag 4thGn Nonreactive Imaging Radiology Impressions: ITS Impressions Chest X-Ray 08/13/24 14:49 IMPRESSION: Right basilar radiopacity may reflect atelectasis versus infectious/inflammatory etiology. Electronically signed by: Marcelino Lynn MD 08/13/2024 04:19 PM EDT Medications Medications Current Medications Acetaminophen (Acetaminophen 325 Mg Tablet) 650 mg PO Q6H PRN PRN Reason: Pain, Mild (Pain Scale 1-3), fever or headache Last Admin: 08/15/24 06:30 Dose: 650 mg Albuterol/Ipratropium (Albuterol/Iprat 2.5/0.5mg 3 Ml Ampul.Neb) 3 ml INHALE RQ4H WHILE AWAKE [facility] Last Admin: 08/15/24 08:12 Dose: Not Given Calcium Carbonate (Calcium Carbonate 750 Mg Tab.Chew) 750 mg PO Q4H PRN PRN Reason: Heartburn Last Admin: 08/15/24 06:30 Dose: 750 mg Enoxaparin Sodium (Enoxaparin Sodium 40 Mg/0.4 Ml Syringe) 40 mg SUBCUT Q24H [facility] Last Admin: 08/15/24 08:04 Dose: Not Given Magnesium Hydroxide (Milk Of Magnesia 30 Ml Oral.Susp) 30 ml PO DAILY PRN PRN Reason: Constipation Melatonin (Melatonin 3 Mg Tablet) 6 mg PO BEDTIME PRN PRN Reason: Insomnia Last Admin: 08/13/24 23:26 Dose: 6 mg Methadone HCl (Methadone Hcl 20 Mg/2 Ml Oral.Conc) 45 mg PO DAILY@0800 [facility] Last Admin: 08/15/24 08:00 Dose: 45 mg Methylprednisolone Sodium Succinate (Methylprednisolone Sod Succ 40 Mg/Ml Vial) 40 mg IVPUSH Q12H [facility] Last Admin: 08/15/24 06:30 Dose: 40 mg Mirtazapine (Mirtazapine 15 Mg Tablet) 15 mg PO BEDTIME [facility] Nicotine (Nicotine 21 Mg Patch.Td24) 21 mg TRANSDERMA DAILY [facility] Last Admin: 08/15/24 07:59 Dose: 21 mg Omeprazole (Omeprazole 40 Mg Capsule.Dr) 40 mg PO DAILY@0630 [facility] Last Admin: 08/15/24 06:30 Dose: 40 mg Sodium Chloride (0.9 % Sodium Chloride Flush 3 Ml Syringe) 3 ml IVFLUSH QSHIFT [facility] Last Admin: 08/15/24 08:00 Dose: 3 ml Zolpidem Tartrate (Zolpidem Tartrate 5 Mg Tablet) 5 mg PO BEDTIME PRN PRN Reason: Insomnia Last Admin: 08/14/24 22:25 Dose: 5 mg Allergies Allergies Allergy/AdvReac Type Severity Reaction Status Date / Time trazodone [Trazodone] Allergy Unknown PRIAPISM Verified 08/13/24 14:50 Assessment & Plan Assessment & Plan (1) Opioid use disorder, severe, dependence: Status: Acute Code(s): F11.20 - Opioid dependence, uncomplicated Assessment and Plan: * last dose letter to be provided by RN * referral information to be sent to [facility] * patient aware of referral * take home narcan Total time managing care of this patient today _15___ minutes.
--- NOTE | 2024-08-15 11:06 | MHC.CM.PN ---
Pt lives with family, no home health services or DME. Pt is independent, he can arrange a ride home at [place]. His PCP is Dr. Bright. He declined to complete a HCP. DCP; home, self care. Pt. has been medically cleared for DC.
--- NOTE | 2024-08-15 11:30 | P.DS_ITS ---
DS: Providers Provider Date of Service: 08/15/24 Date of admission: 08/13/24 17:14 Date of discharge: 08/15/24 Primary care physician: None Physician Consults: 08/14/24 07:13 Addiction Medicine Routine Consulting Provider: Addiction Covering Reason for consultation: heroin DS: Diagnosis Discharge Diagnosis (1) Opioid use disorder, severe, dependence: Status: Acute (2) Asthma exacerbation: Status: Acute (3) Tobacco abuse: Status: Acute (4) Acute respiratory failure with hypoxia: Status: Acute DS: Summary Hospital Course Hospital Course: Admission note HPI 48M PMH copd/severe persistent asthma, presented with sob. patient was feeling at baseline earlier on day of admission, was in crowded room and suddenly felt panicky and overwhelmed with severe sob. called EMS, found to be severely hypoxic and wheezy, saturating 60s on room air, placed on bipap. eventually weaned to 5L oxymask. Hospital course The patient was admitted for treatment Acute hypoxic respiratory failure secondary to COPD/severe persistent asthma with acute decompensation treated with IV steroids, and bronchodilator nebulizers with improvement over the course of hospital stay and was weaned down O2 to room air. He was also evaluated for opiate dependence with withdrawal by recovery team who started on him on Methadone with fair response. Will be following as outpatient for MEthadone as he was started on 45mg daily for now. He was advised for smoking cessation and started on Nicoderm with fair response. Discharge plan Continue Prednisone for 3 more days Methadone daily and follow with recovery team as outpatient Quit smoking, use nicotine patches daily Omeprazole daily for stomach protection Time Attestation Discharge Coordination Time (in mins): 34 Quality: Safe Use of Opioids Does Pt have an Active Cancer Diagnosis on the Problem List?: No Quality: Stroke Does the patient have a stroke diagnosis?: No Physical Exam Vital Signs: Vital Signs: Last Vital Signs Temp 97.5 F 08/15/24 08:00 Pulse 75 08/15/24 08:00 Resp 20 08/15/24 08:00 BP 142/81 H 08/15/24 08:00 Pulse Ox 100 08/15/24 08:00 O2 Del Method Room Air 08/15/24 08:00 O2 Flow Rate 3 08/14/24 05:52 BMI result Body Mass Index 22.5 Const: Other: Constitutional : Awake, interactive, not in distress Neck : Normal inspection, Supple Cardiovascular : RRR, no JVP, no lower extremity edema Respiratory : good bilateral air entry, no crackles, wheezes or rhonchi Gastrointestinal: soft, lax, Normal bowel sounds, Non tender Skin : Warm, Dry Neurological : Alert & oriented x3, No focal deficit DS: Data Data Completed and Pending Labs on day of discharge: Laboratory Results - last 24 hr 08/14/24 08/15/24 10:53 06:05 WBC 15.2 H RBC 4.12 L Hgb 12.9 L Hct 37.4 L MCV 90.8 MCH 31.3 MCHC 34.5 RDW 13.9 Plt Count 138 L MPV 11.7 Absolute Nucleated RBC 0.000 Nucleated RBC % (auto) 0.0 Sodium 139 Potassium 4.5 Chloride 106 Carbon Dioxide 24 Anion Gap 14 BUN 11 Creatinine 0.76 Estim Creat Clear Calc 124.5 Estimated GFR > 60 Fasting Glucose 95 Calcium 9.0 Hepatitis C Ab (EIA) Reactive H HIV 1&2 Ab/P24 Ag 4thGn Nonreactive Imaging Chest x-ray: Radiologist's impression: ITS Impressions Chest X-Ray 08/13/24 14:49 IMPRESSION: Right basilar radiopacity may reflect atelectasis versus infectious/inflammatory etiology. Electronically signed by: Marcelino Lynn MD 08/13/2024 04:19 PM EDT RP Discharge Plan Discharge Anticipated Discharge Date/Time: 08/15/24 11:25 Patient Disposition: Home, Self-Care Discharge Diagnosis: Asthma exacerbation Opioid use disorder Referrals: Physician,None [Primary Care Provider] - 1 Week Discharge Medications: New omeprazole 40 mg Capsule,Delayed Release(Dr/Ec) 40 mg PO DAILY@0630 Qty: 90 0RF nicotine 21 mg/24 hr Patch 24 Hour 21 mg transdermal DAILY Qty: 28 2RF methadone [Methadose] 10 mg/mL Concentrate 45 mg PO DAILY@0800 1 Days Qty: 30 0RF Rx Instructions: Partial Fill upon patient request. prednisone 20 mg tablet 40 mg PO DAILY Qty: 6 0RF Continued clonidine HCl 0.1 mg tablet 0.2 mg PO BEDTIME PRN (Reason: Sleep/anxiety) mirtazapine 15 mg tablet 15 mg PO BEDTIME escitalopram oxalate 5 mg tablet PO One Daily Multi-Vit w-Mineral 4.5 mg iron tablet 1 tab PO DAILY albuterol sulfate [Ventolin HFA] 90 mcg/actuation HFA aerosol inhaler 2 puff inhalation Q4-6H PRN (Reason: Shortness Of Breath Or Wheezing) Qty: 6.7 0RF Discharge Orders: Discharge Order (Routine); Ordered 08/15/24 Ordered By: Isa Bailey Diet: Advance to usual diet Activity on Discharge: As tolerated Stand Alone Forms: Patient Portal Discharge page Print Language: [place]e Care Plan Goals: Continue Prednisone for 3 more days Methadone daily and follow with recovery team as outpatient Quit smoking, use nicotine patches daily Omeprazole daily for stomach protection Health Concerns: Asthma Opioid use disorder Plan of Treatment: Steroids, quit smoking Assessment: as above
[2024-08-15] MEDS: Naloxone HCl Nasal TAKE HOME 4 MG SPRAY 8 MG NOSTRILALT (12:15)
--- NOTE | 2024-08-15 12:19 | MHC.CM.PN ---
A Last Dose Letter has been provided for discharge with [facility], Cristin Olivo. Patient has arranged for transport home.
--- NOTE | 2024-08-15 12:24 | MHC.RECOVSUP ---
Innitial attempt was shut down by request for more sleep. Returned and patient was up and ready to talk. Discussed history- recent relapse. Decided to submitted [facility] referral to [facility].
[2024-08-16 15:13] LABS: HCV Log PCR 5.72 Log IU/mL (NOT DETECTED); HepC Viral Load 522000 IU/mL (NOT DETECTED)
--- NOTE | 2024-08-18 10:47 | PM.EVENT ---
Event Note Date of Service: 08/18/24 Event Note: + Hepatitis C screening T/W called patient to notify him of + Hepatitis C result with VL Patient states this is a new diagnosis for him Requesting referral to ID for treatment--referral to be sent by this designer writer [facility] case report to be completed by this designer writer as well Time Spent With Patient Time: Total time managing care of this patient today ____ minutes.
== END 2024-08-15 12:33 | disposition home or self-care (01) | DRG 140 ==
LOC: HO.ED 16:02 → HO.EDOVER 17:18 → HO.IMC 08-14 09:23
PROVIDERS: Nurse Practitioner Psychiatric/Mental Health; Admitting Provider Internal Medicine; Emergency Provider Emergency Medicine; PCP Internal Medicine Medical Oncology; Visit Provider Student in an Organized Health Care Education/Training Program
DX: J44.1 Chronic obstructive pulmonary disease with (acute) exacerbation (principal); J96.01 Acute respiratory failure with hypoxia; J45.51 Severe persistent asthma with (acute) exacerbation; B19.20 Unspecified viral hepatitis C without hepatic coma; F11.23 Opioid dependence with withdrawal; F17.210 Nicotine dependence, cigarettes, uncomplicated; Z71.6 Tobacco abuse counseling; Z79.899 Other long term (current) drug therapy
CPT/HCPCS: 36415; 71045; 80048; 80053; 82803; 83036; 85025; 85027; 86803; 87389; 87522; 93005; 94640; 99285; J1171; J1650; J2919; J3475

== ENCOUNTER → 2024-08-13 14:49 | Outpatient (BNV) | payer OTHER, SELFPAY | PROVIDERS: Admitting Provider Internal Medicine; Emergency Provider Emergency Medicine; Visit Provider Internal Medicine | DX: R06.02 Shortness of breath (principal) | CPT/HCPCS: 93010 ==

== ENCOUNTER → 2024-08-13 17:14 | Outpatient (BNV) | payer OTHER, SELFPAY | PROVIDERS: Admitting Provider Internal Medicine; Emergency Provider Emergency Medicine; Visit Provider Internal Medicine | DX: J45.51 Severe persistent asthma with (acute) exacerbation (principal); J96.01 Acute respiratory failure with hypoxia | CPT/HCPCS: 99223; 99232; 99239 ==

== ENCOUNTER → 2024-08-13 17:14 | Outpatient (BNV) | payer OTHER, SELFPAY | PROVIDERS: Admitting Provider Internal Medicine; Emergency Provider Emergency Medicine; Visit Provider Nurse Practitioner Psychiatric/Mental Health | DX: F11.20 Opioid dependence, uncomplicated (principal) | CPT/HCPCS: 99231; 99232; 99499 ==

== ENCOUNTER 2025-05-05 09:44 | Emergency (ER) | payer OTHER, SELFPAY ==
--- NOTE | ~2025-05-05 | CT_ITS ---
CLINICAL HISTORY: pain, fall CT cervical spine without IV contrast Comparison: CT/CA/SR - CT CERVICAL SPINE WITHOUT IV CONTRAST - 06/06/23 20:27 EDT Findings: Normal alignment. No acute fracture or suspicious osseous lesion. Stable [id number] multilevel degenerative spondylosis of the cervical spine, no high-grade central canal stenosis. Unremarkable prevertebral soft tissue. Lung apices clear. Previously seen subcutaneous cystic lesion of left posterior neck at C2 level mildly decreased in size, 1.0 x 0.6 cm, previously 1.3 cm in largest axial dimension, otherwise unremarkable soft tissue of the neck and visualized intracranial contents. Impression: 1. No acute finding. 2. Mildly improved left posterior neck subcutaneous cystic lesion, probably sebaceous cyst or epidermal inclusion cysts, please correlate clinically. 3. Grossly stable degenerative changes of the cervical spine. This document has been electronically signed by: Estela Nguyen MD on 05/05/2025 13:20:10
--- NOTE | ~2025-05-05 | XR_ITS ---
CLINICAL HISTORY: pain, injury 4 view left shoulder Comparison: None provided Findings: No fractures or dislocations. No significant loss of joint space or osteophytes. No erosions. No radiopaque foreign body. IMPRESSION: 1. No acute findings This document has been electronically signed by: Pako Wright MD on 05/05/2025 11:14:50
--- NOTE | ~2025-05-05 | CT_ITS ---
CLINICAL HISTORY: AMS CT head without contrast Comparison: 06/06/2023 08:27 PM EDT: CTSR: CT HEAD WITHOUT IV CONTRAST (07:27 PM CDT) Findings: No acute hemorrhage, acute major vascular distribution infarct, intracranial mass, midline shift or hydrocephalus. No extra-axial fluid collection. Visualized paranasal sinuses and mastoid air cells normal. Orbits unremarkable. The cranium appears intact. Superficial soft tissue is unremarkable. Impression: No acute intracranial finding. This document has been electronically signed by: Estela Nguyen MD on 05/05/2025 13:29:06
[2025-05-05 09:46] VITALS: BP 116/67; PULSE 70; RESP 18; TEMP 36.6; O2SAT 100; BMI 20.3
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
--- OUTSIDE RECORDS SUMMARY | 2025-05-05 09:59 | XMS_ITS | Encounter Summary ---
Author Organization [facility] Address [address] [place] [address] Care Team Providers Care Bell Valet Name Role Phone Sammi Owusu MD Primary Care Provider Encounter Details Date Type Department Care Team (Late st Contact Info) Description 08/21/2024 Lab Requisition [facility] - Main Lab [address] [facility] [place] [address] Sammi Owusu MD [address] [place] [address] Opioid dependence, uncomplicated (CMS/HCC V24, CMS/HCC V28) Social History Tobacco Use Types Packs/Day Years Used Date Smoking Tobacco: Never Assessed Sex and Gender Information Value Date Recorded Sex Assigned at Not on file Legal Sex Male 1:13 AM EST Gender Identity Not on file Sexual Orientation Not on file documented as of this encounter Plan of Treatment Not on file documented as of this encounter Procedures Procedure Name Priority Date/Time Associated Diagnosis Comments HIV 1, 2 ANTIBODY, P24 ANTIGEN WITH REFLEX TO DIFFERENTIATION Routine 08/21/2024 10:55 AM EST Opioid dependence, uncomplicated (CMS/HCC) HEPATITIS B SURFACE ANTIGEN WITH CONFIRMATION Routine 08/21/2024 10:55 AM EST Opioid dependence, uncomplicated (CMS/HCC) AST, ALT, BILIRUBIN ELR STATE REPORTABLES Routine 08/21/2024 10:55 AM EST Opioid dependence, uncomplicated (CMS/HCC) TREPONEMA PALLIDUM ANTIBODY WITH REFLEX TO RPR AND PARTICLE AGGLUTINATION Routine 08/21/2024 10:55 AM EST Opioid dependence, uncomplicated (CMS/HCC) HEPATITIS C VIRUS QUANTITATIVE PCR Routine 08/21/2024 10:55 AM EST Opioid dependence, uncomplicated (CMS/HCC) HEPATITIS B CORE ANTIBODY IGM Routine 08/21/2024 10:55 AM EST Opioid dependence, uncomplicated (CMS/HCC) HEPATITIS B SURFACE ANTIBODY Routine 08/21/2024 10:55 AM EST Opioid dependence, uncomplicated (CMS/HCC) COMPLETE BLOOD COUNT Routine 08/21/2024 10:55 AM EST Opioid dependence, uncomplicated (CMS/HCC) COMPREHENSIVE METABOLIC PANEL Routine 08/21/2024 10:55 AM EST Opioid dependence, uncomplicated (CMS/HCC) documented in this encounter Results * (ABNORMAL) AST, ALT, Bilirubin ELR state reportables (08/21/2024 10:55 AM EST) ALT (SGPT) 275(H) 10 - 60 unit/L LAB CHEMISTRY METHOD 08/22/2024 8:48 PM EST [facility] AST (SGOT) 197(H) 10 - 42 unit/L LAB CHEMISTRY METHOD 08/22/2024 8:48 PM EST [facility] Total Bilirubin 0.3 0.0 - 1.4 mg/dL LAB CHEMISTRY METHOD 08/22/2024 8:48 PM [facility] Blood Venous blood specimen / Unknown 08/21/2024 10:55 AM EST 08/21/2024 4:04 PM EST us Sammi Owusu MD LAB BLOOD ORDERABLES Fi nal Result [facility] [address] [place] [address], * Hepatitis B surface antigen with reflex to confirmation (08/21/2024 10:55 AM EST) Hepatitis B Surface Ag Negative Negative LAB CHEMISTRY METHOD 08/21/2024 7:12 PM EST [facility] Blood Venous blood specimen / Unknown 08/21/2024 10:55 AM EST 08/21/2024 6:14 PM EST Narrative [facility] - 08/21/2024 7:12 PM EST Over the counter supplements containing high doses of biotin may interfere with this assay. If interference is suspected, patients shoud be retested after refraining from biotin supplements for 72 hours. us Sammi Owusu MD LAB BLOOD ORDERABLES Fi nal Result Performing Organization Address [facility] [place]/[facility]/ZIP Co de Phone Number [facility] [address] [place] [address], [place] [phone] * (ABNORMAL) Hepatitis C virus quantitative molecular study (08/21/2024 10:55 AM EST) [facility] HCV Qual Interp Detected (A) Not Detected LAB MOLECULAR DIAGNOSTICS METHOD 08/22/2024 1:37 PM EST [facility] HCV RNA Quantitative 16,657,4 66(H) <12 I Unit/mL LAB MOLECULAR DIAGNOSTICS METHOD 08/22/2024 1:37 PM EST [facility] HCV RNA Quantitative Log 7.22(H) <1.08 Log IU/mL LAB MOLECULAR DIAGNOSTICS METHOD 08/22/2024 1:37 PM EST [facility] Blood Venous blood specimen / Unknown 08/21/2024 10:55 AM EST 08/21/2024 4:04 PM EST us Sammi Owusu MD LAB BLOOD ORDERABLES Fi nal Result Performing Organization Address [facility] [place]/ZIP Co de Phone Number [facility] [address] [place] [address], [place] [phone] * HIV 1,2 antibody, p24 antigen with reflex to differentiation (08/21/2024 10:55 AM EST) [facility] HIV Combo AB/AG Negative Negative LAB CHEMISTRY METHOD 08/25/2024 12:28 PM EST [facility] Blood Venous blood specimen / Unknown 08/21/2024 10:55 AM EST 08/21/2024 4:04 PM EST [facility] - 08/25/2024 12:28 PM EST This assay is a 4th generation assay allowing for earlier detection of HIV infection by detecting the presence of the HIV-1 p24 antigen as well as the traditional antibodies to HIV type 1 (including group O) and type 2. Use of a 4th generation assay is the current CDC recommendation for HIV screening. Sammi Owusu MD LAB BLOOD ORDERABLES Ed ited Result - Final Performing Organization Address [facility] [place] Co de Phone Number [facility] [address] [place] [address], * Hepatitis B surface antibody (08/21/2024 10:55 AM EST) [facility] Hepatitis B Surface Ab Negative Negative LAB CHEMISTRY METHOD 08/21/2024 4:51 PM EST [facility] Hepatitis B Surface Ab Quantitative <3.1 mIU/mL LAB CHEMISTRY METHOD 08/21/2024 4:51 PM EST [facility] Blood Venous blood specimen / Unknown 08/21/2024 10:55 AM EST 08/21/2024 4:04 PM EST [facility] - 08/21/2024 4:51 PM EST >=10 mIU/mL is considered to be consistent with immunity. us Sammi Owusu MD LAB BLOOD ORDERABLES Fi nal Result Performing Organization Address [facility] [place] Co de Phone Number [facility] [address] [place] [address], * Hepatitis B core antibody IgM (08/21/2024 10:55 AM EST) [facility] Hep B Core IgM Negative Negative LAB CHEMISTRY METHOD 08/21/2024 5:36 PM EST [facility] Blood Venous blood specimen / Unknown 08/21/2024 10:55 AM EST 08/21/2024 4:04 PM EST Narrative [facility] - 08/21/2024 5:36 PM EST Over the counter supplements containing high doses of biotin may interfere with this assay. If interference is suspected, patients shoud be retested after refraining from biotin supplements for 72 hours. Sammi Owusu MD LAB BLOOD ORDERABLES Fi nal Result Performing Organization Address [facility] [place]/ZIP Co de Phone Number [facility] [address] [place] [address], [place] [phone] * Treponema pallidum antibody with reflex to RPR and particle agglutination (08/21/2024 10:55 AM EST) [facility] T. Pallidum Antibodies Negative Negative LAB CHEMISTRY METHOD 08/21/2024 5:01 PM EST [facility] Blood Venous blood specimen / Unknown 08/21/2024 10:55 AM EST 08/21/2024 4:04 PM EST Sammi Owusu MD LAB BLOOD ORDERABLES Fi nal Result Performing Organization Address City/[facility]/ZIP Co de Phone Number [facility] [address] [place] [address], [place] [phone] * (ABNORMAL) Comprehensive metabolic panel (08/21/2024 10:55 AM EST) [facility] Sodium 138 133 - 145 mmol/L LAB CHEMISTRY METHOD 08/21/2024 4:53 PM EST [facility] Potassium 4.8 3.5 - 5.5 mmol/L LAB CHEMISTRY METHOD 08/21/2024 4:53 PM [facility] Chloride 104 96 - 110 mmol/L LAB CHEMISTRY METHOD 08/21/2024 4:53 PM [facility] CO2 30 21 - 32 mmol/L LAB CHEMISTRY METHOD 08/21/2024 4:53 PM [facility] Anion Gap 4 3 - 11 LAB CHEMISTRY METHOD 08/21/2024 4:53 PM [facility] Glucose 70 70 - 100 mg/dL LAB CHEMISTRY METHOD 08/21/2024 4:53 PM [facility] BUN 15 5 - 25 mg/dL LAB CHEMISTRY METHOD 08/21/2024 4:53 PM [facility] Creatinine 0.98 0.70 - 1.30 mg/dL LAB CHEMISTRY METHOD 08/21/2024 4:53 PM [facility] eGFR 96 >=60 mL/min/1. 73m2 LAB CHEMISTRY METHOD 08/21/2024 4:53 PM [facility] Comment:Calculation based on the Chronic Kidney Disease Epidemiology Collaboration (CKD-EPI) equation refit without adjustment for race. BUN/Creatinine Ratio 15.3 LAB CHEMISTRY METHOD 08/21/2024 4:53 PM [facility] Calcium 8.7 8.5 - 10.5 mg/dL LAB CHEMISTRY METHOD 08/21/2024 4:53 PM [facility] AST (SGOT) 197(H) 10 - 42 unit/L LAB CHEMISTRY METHOD 08/21/2024 4:53 PM [facility] ALT (SGPT) 275(H) 10 - 60 unit/L LAB CHEMISTRY METHOD 08/21/2024 4:53 PM [facility] Alkaline Phosphatase 155(H) 42 - 121 unit/L LAB CHEMISTRY METHOD 08/21/2024 4:53 PM [facility] Total Protein 6.5 6.0 - 8.0 g/dL LAB CHEMISTRY METHOD 08/21/2024 4:53 PM [facility] Albumin 3.0(L) 3.2 - 5.0 g/dL LAB CHEMISTRY METHOD 08/21/2024 4:53 PM EST [facility] Total Bilirubin 0.3 0.0 - 1.4 mg/dL LAB CHEMISTRY METHOD 08/21/2024 4:53 PM [facility] Blood Venous blood specimen / Unknown 08/21/2024 10:55 AM EST 08/21/2024 4:04 PM EST us Sammi Owusu MD LAB BLOOD ORDERABLES Fi nal Result [facility] [address] [place] [address], * (ABNORMAL) Complete blood count (08/21/2024 10:55 AM EST) WBC 5.8 4.8 - 10.8 K/mcL LAB HEMETOLOGY METHOD 08/21/2024 4:30 PM [facility] RBC 4.70 4.50 - 5.50 [facility] LAB HEMETOLOGY METHOD 08/21/2024 4:30 PM [facility] Hemoglobin 14.6 13.5 - 17.5 g/dL LAB HEMETOLOGY METHOD 08/21/2024 4:30 PM [facility] Hematocrit 44.5 42.0 - 54.0 % LAB HEMETOLOGY METHOD 08/21/2024 4:30 PM [facility] MCV 94.3 79.0 - 98.0 FL LAB HEMETOLOGY METHOD 08/21/2024 4:30 PM [facility] MCH 30.9 27.0 - 32.0 pcg LAB HEMETOLOGY METHOD 08/21/2024 4:30 PM [facility] MCHC 32.8 32.0 - 37.0 g/dL LAB HEMETOLOGY METHOD 08/21/2024 4:30 PM EST [facility] RDW 14.0 11.0 - 15.0 % LAB HEMETOLOGY METHOD 08/21/2024 4:30 PM EST [facility] Platelets 168 130 - 400 K/mcL LAB HEMETOLOGY METHOD 08/21/2024 4:30 PM [facility] MPV 12.0(H) 7.0 - 11.0 FL LAB HEMETOLOGY METHOD 08/21/2024 4:30 PM EST [facility] NRBC 0.0 <1.0 % LAB HEMETOLOGY METHOD 08/21/2024 4:30 PM EST [facility] NRBC Absolute 0.00 <0.10 K/mcL LAB HEMETOLOGY METHOD 08/21/2024 4:30 PM [facility] Blood Venous blood specimen / Unknown 08/21/2024 10:55 AM EST 08/21/2024 4:04 PM EST us Sammi Owusu MD LAB BLOOD ORDERABLES Fi nal Result [facility] [address] [place] [address], documented in this encounter Visit Diagnoses Diagnosis Opioid dependence, uncomplicated (CMS/HCC V24, CMS/HCC V28) documented in this encounter Care Teams Bell Valet Relationship Specialty Start Date End Date Sammi Owusu MD [address] [place] [address] PCP - General Internal Medicine 11/08/24 documented as of this encounter
[2025-05-05 13:39] VITALS: BP 143/97; PULSE 63; RESP 17; TEMP 36.8; O2SAT 100
[2025-05-05 14:42] VITALS: BP 143/97; PULSE 63; RESP 17; TEMP 36.8; O2SAT 100
== END 2025-05-05 14:43 | disposition home or self-care (01) ==
PROVIDERS: Emergency Provider Emergency Medicine; PCP Internal Medicine Medical Oncology
DX: Z04.3 Encounter for examination and observation following other accident (principal); L03.011 Cellulitis of right finger; L72.3 Sebaceous cyst; M79.18 Myalgia, other site; M25.512 Pain in left shoulder; M54.2 Cervicalgia
CPT/HCPCS: 70450; 72125; 73030; 99284

== ENCOUNTER → 2025-05-05 10:23 | Outpatient (BNV) | payer OTHER, SELFPAY | PROVIDERS: PCP Internal Medicine Medical Oncology; Visit Provider Radiology Diagnostic Radiology | DX: M50.30 Other cervical disc degeneration, unspecified cervical region (principal); R41.82 Altered mental status, unspecified; M25.512 Pain in left shoulder | CPT/HCPCS: 70450; 72125; 73030 ==